=== PATIENT | male | born 1960 | race African-American/Black ===

== ENCOUNTER 2019-02-15 03:31 | Emergency (ER) | payer SELFPAY ==
[2019-02-15 04:01] LABS: Absolute Lymphocytes (CBC) 1.5 K/uL (0.7-4.9); Absolute Monocytes 0.5 K/uL (0.1-1.3); Absolute Neutrophil 3.2 K/uL (1.8-8.0); Basophils % 0.6 % (0-1.3); Eosinophils % 0.2 % (0-4.4); Hematocrit 44.2 % (39.6-49.0); MPV 9.6 fL (7.6-11.3); Monocytes % 9.4 % (3.3-12.3); RBC Red Blood Cell Count 4.97 M/uL (4.33-5.43)
[2019-02-15] MEDS ORDERED: TETANUS & DIPHTHERIA TOX,ADULT 0.5 ML VIAL ONE (04:01)
[2019-02-15 04:27] LABS: ALT/SGPT 63 U/L (12-78); AST/SGOT 96 U/L (15-37); Albumin 3.5 g/dL (3.4-5.0); Alkaline Phosphatase 79 U/L (45-117); BUN Blood Urea Nitrogen 6 mg/dL (7-18); Bicarbonate 22 mmol/L (21-32); Bilirubin Total 0.4 mg/dL (0.2-1.0); Glucose Level 81 mg/dL (74-106); Potassium 3.4 mmol/L (3.5-5.1); Protein, Total 8.6 g/dL (6.4-8.2); Sodium Level 135 mmol/L (136-145)
[2019-02-15] MEDS ORDERED: POTASSIUM 25 MEQ EFFERV TAB ONE (04:52)
[2019-02-15] MEDS ORDERED: NA CHLORIDE 0.9% 1,000 ML ONE (04:52)
[2019-02-15] MEDS ORDERED: LIDOCAINE 1% W/EPI 1:100,000 MDV 50 ML VIAL ONE (05:16)
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
[2019-02-15] MEDS ORDERED: LIDOCAINE 1% MPF 5 ML VIAL ONE (08:29)
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
== END 2019-02-15 08:39 | disposition home or self-care (01) ==
LOC: ER 03:31
PROC: 0JQ00ZZ Repair Scalp Subcutaneous Tissue and Fascia, Open Approach (ICD-10-PCS; principal; 2019-02-15)
PROC: 0HQ2XZZ Repair Right Ear Skin, External Approach (ICD-10-PCS; 2019-02-15)
DX: S01.01XA Laceration without foreign body of scalp, initial encounter (principal); S01.311A Laceration without foreign body of right ear, initial encounter; V59.9XXA Occupant (driver) (passenger) of pick-up truck or van injured in unspecified traffic accident, initial encounter; Z23 Encounter for immunization; F17.210 Nicotine dependence, cigarettes, uncomplicated
CPT/HCPCS: 36415; 70450; 71045; 72125; 72170; 80053; 80320; 85025; 90714; 96360; 96361; 99285; J7030

== ENCOUNTER 2023-09-16 12:19 | Inpatient (IN) | payer SELFPAY ==
[2023-09-16] MEDS ORDERED: LEVALBUTEROL 1.25 MG/3 ML NEB ONE (12:38)
[2023-09-16] MEDS ORDERED: MAGNESIUM SULFATE 1 gm IVPB 1 GM/100 ML BAG IV ONE (12:38)
[2023-09-16] MEDS ORDERED: METHYLPREDNISOLONE 125 MG INJ ONE (12:38)
[2023-09-16 13:01] LABS: Absolute Lymphocytes (CBC) 1.7 K/uL (0.7-4.9); Hematocrit 38.6 % (39.6-49.0); Lymphocytes % 34.3 % (15.3-44.8); MCV 87.2 fL (80-100); MPV 9.9 fL (7.6-11.3); Platelets 149 thou/uL (152-406); RBC Red Blood Cell Count 4.43 M/uL (4.33-5.43)
[2023-09-16 13:06] LABS: Protime INR 1.23
--- NOTE | 2023-09-16 13:09 | RAD REPORT ---
EXAM DESCRIPTION: [place] Single View09/16/2023 12:51 pm CLINICAL HISTORY: Cough COMPARISON: 2018 FINDINGS: Mild bilateral pulmonary opacities Heart is moderately enlarged IMPRESSION: These findings likely indicate mild CHF
--- NOTE | 2023-09-16 13:17 | EDPHYS ---
Physician Documentation [facility] Name: Milan Machuca Age: 62 yrs Sex: Male : 1960 Arrival Date: 09/16/2023 Time: 12:19 Bed 6 Private MD: ED Physician Jose Alegre HPI: 09/16 13:19 This 62 yrs old Black Male presents to ER via EMS with complaints of sob, fever, cough. rn 13:19 The patient has shortness of breath at rest, with light activity. Onset: The rn symptoms/episode began/occurred 4 day(s) ago. Duration: The symptoms are continuous. The patient's shortness of breath is aggravated by coughing, exertion, light activity, is alleviated by application of supplemental oxygen. Associated signs and symptoms: Pertinent positives: productive cough, fever, Pertinent negatives: hemoptysis. Severity of symptoms: At their worst the symptoms were moderate in the emergency department the symptoms are unchanged. The patient has not experienced similar symptoms in the past. The patient has not recently seen a physician. Patient reports feeling sick for the last 4 to 5 days. Reports fever, headache, congestion, productive cough, myalgias. No chest pain. Long smoking history but no clear diagnosis of COPD. No abdominal pain or vomiting.. Historical: - Allergies: 12:27 No Known Allergies; ph - PMHx: 12:27 Hypertensive disorder; CHF; Myocardial infarction; ph - Immunization history:: Adult Immunizations unknown. - Social history:: Smoking status: Patient reports the use of cigarette tobacco products, smokes one-half pack cigarettes per day. - Family history:: not pertinent. - Hospitalizations: : No recent hospitalization is reported. ROS: 13:19 Constitutional: Negative for fever, chills, and weight loss, ENT: Positive for sore rn throat and nasal congestion Cardiovascular: Negative for chest pain, palpitations, and edema, Respiratory: Positive for cough and shortness of breath Abdomen/GI: Negative for abdominal pain, nausea, vomiting, diarrhea, and constipation, MS/Extremity: Negative for injury and deformity, Skin: Negative for injury, rash, and discoloration, Neuro: Positive for headache and generalized weakness Exam: 13:19 Constitutional: This is a well developed, well nourished patient who is awake, alert, rn and in no acute distress. Head/Face: Normocephalic, atraumatic. ENT: Dry mucous membranes, no stridor Cardiovascular: Tachycardic, irregular. No pulse deficits Respiratory: Mild tachypnea, faint expiratory wheezing, diffuse crackles throughout. Abdomen/GI: Soft, nontender Skin: Warm, dry MS/ Extremity: Pulses equal, no cyanosis Neuro: Awake and alert, GCS 15 13:34 ECG was reviewed by the Attending Physician. rn Vital Signs: 12:21 BP 140 / 96; Pulse 120; Resp 24; Temp 97.5; Pulse Ox 93% on R/A; Weight 74.84 kg; ph Height 5 ft. 11 in. ; 13:35 Pulse 95; Resp 19 S; Pulse Ox 95% on 2 lpm NC; aa5 13:40 BP 125 / 97; Pulse 93; Resp 20 S; Pulse Ox 96% on 2 lpm NC; aa5 14:32 BP 123 / 91; Pulse 98; Resp 18; Pulse Ox 94% on 2 lpm NC; ph 16:03 BP 142 / 99; Pulse 95; Resp 18; Pulse Ox 95% on 2 lpm NC; ph 17:55 BP 148 / 98; Pulse 98; Resp 18; Pulse Ox 97% on 2 lpm NC; ph 12:21 Body Mass Index 23.01 (74.84 kg, 180.34 cm) ph MDM: 12:20 Patient medically screened. rn 13:19 Differential diagnosis: Anemia Anxiety Reaction Bronchitis CHF exacerbation, Chronic rn Obstructive Pulmonary Disease Myocardial Infarction pneumonia, Pneumothorax pulmonary edema. Data reviewed: vital signs, nurses notes, lab test result(s), EKG, radiologic studies, plain films. 13:26 Independent interpretation of the following test(s) in the Emergency Department EKG: rn See my EKG interpretation above X-Ray: My interpretation is Chest x-ray images show pulmonary edema per my interpretation.. library monitor: rate is 95 beats/min, Rhythm is normal sinus rhythm, with unifocal PVCs, Interpretation: normal rate, normal rhythm. ED course: Patient with influenza, is a viral source of infection. No bacterial source of infection identified at this time. Patient given diltiazem IV and has converted back to sinus rhythm with occasional PVCs. Heart rate currently 95 in sinus.. 13:27 Consideration of Admission/Observation Patient was admitted/placed on observation. rn Escalation of care including admission/observation considered. Management of patient was discussed with the following: Hospitalist: . Care significantly affected by the following chronic conditions: Hypertension, Congestive Heart Failure. Counseling: I had a detailed discussion with the patient and/or guardian regarding the historical points, exam findings, and any diagnostic results supporting the discharge/admit diagnosis, lab results, radiology results, the need for further work-up and treatment in the hospital. Response to treatment: the patient's symptoms have markedly improved after treatment, and as a result, I will admit patient. ED course: I personally spent 35 minutes engaged in work directly related to the individual patient's care. This does not include any time spent performing procedures. The patient has been deemed critically ill because of atrial fibrillation with rapid ventricular rate requiring IV medication and for cardioversion. Also patient with chronic hypertension and CHF and has been off of his medication for the previous 4 months complicating current situation.. 09/16 12:21 Order name: Blood Culture Adult (2) 09/16 12:21 Order name: CBC with Diff; Complete Time: 13:13 09/16 12:21 Order name: CMP; Complete Time: 13:29 09/16 12:21 Order name: Lactate w/ 2H reflex if indic.; Complete Time: 13:29 09/16 12:21 Order name: Protime (+inr); Complete Time: 13:13 09/16 12:21 Order name: Ptt, Activated; Complete Time: 13:13 09/16 12:21 Order name: Flu; Complete Time: 13:17 09/16 12:21 Order name: SARS RAPID rn 09/16 12:21 Order name: BNP; Complete Time: 13:29 09/16 12:49 Order name: SARS-COV-2 RT PCR ph 09/16 15:40 Order name: Urinalysis w/ reflexes EDMS 09/16 15:40 Order name: Basic Metabolic Panel EDMS 09/16 15:40 Order name: Basic Metabolic Panel EDMS 09/16 15:40 Order name: CBC with Automated Diff EDMS 09/16 15:40 Order name: CBC with Automated Diff EDMS 09/16 15:40 Order name: Lipid Profile EDMS 09/16 15:41 Order name: Lipid Profile EDMS 09/16 15:41 Order name: Magnesium EDMS 09/16 15:41 Order name: Magnesium EDMS 09/16 15:41 Order name: Phosphorus EDMS 09/16 15:41 Order name: Phosphorus EDMS 09/16 15:41 Order name: Troponin High Sensitivity EDMS 09/16 15:41 Order name: Troponin High Sensitivity EDMS 09/16 15:41 Order name: Troponin High Sensitivity EDMS 09/16 15:41 Order name: Troponin High Sensitivity EDMS 09/16 12:21 Order name: Chest Single View XRAY; Complete Time: 13:13 rn 09/16 12:21 Order name: EKG; Complete Time: 12:22 rn 09/16 12:21 Order name: Accucheck; Complete Time: 12:30 rn 09/16 12:21 Order name: Cardiac monitoring; Complete Time: 12:30 rn 09/16 12:21 Order name: EKG - Nurse/Tech; Complete Time: 12:37 rn 09/16 12:21 Order name: IV Saline Lock - Large Bore; Complete Time: 12:49 rn 09/16 12:21 Order name: Labs collected and sent; Complete Time: 12:49 rn 09/16 12:21 Order name: O2 Per Protocol; Complete Time: 12:21 rn 09/16 12:21 Order name: O2 Sat Monitoring; Complete Time: 12:30 rn 09/16 12:21 Order name: Vital Signs; Complete Time: 12:21 rn 09/16 13:36 Order name: EKG - Nurse/Tech; Complete Time: 13:36 aa5 Administered Medications: 12:36 Drug: MethylPrednisoLONE IVP 125 mg IVP once Route: IVP; Site: right antecubital; rs5 13:27 Follow up: Response: No adverse reaction ph 12:36 Drug: Levalbuterol Inhalation 1.25 mg Inhalation once Route: Inhalation; rs5 13:27 Follow up: Response: No adverse reaction ph 12:36 Drug: Magnesium Sulfate IVPB 1 grams IVPB once over 1 hrs Route: IVPB; Infused Over: 1 rs5 hrs; Site: right antecubital; 13:26 Follow up: Response: No adverse reaction; IV Status: Completed infusion; IV Intake: ph 100ml 13:17 Drug: NS 0.9% IV 250 ml IV at bolus once Route: IV; Rate: bolus; Site: right ph antecubital; 14:00 Follow up: Response: No adverse reaction; IV Status: Completed infusion; IV Intake: ph 250ml 13:20 Drug: Diltiazem IVP 20 mg IVP once; Over 2 Minutes Route: IVP; Site: right antecubital; ph 13:28 Follow up: Response: No adverse reaction; Cardiac rhythm changed ph 18:05 Drug: Diltiazem PO 30 mg PO once Route: PO; ph 19:30 Follow up: Response: No adverse reaction ph Disposition: 13:27 Critical Care:. rn Disposition Summary: 09/16/23 13:16 Hospitalization Ordered Notes: Hospitalization Status: Inpatient Admission rn Provider: Roland Kramer rn Location: Telemetry/MedSurg (Inpatient) rn Condition: Stable rn Problem: new rn Symptoms: have improved rn Bed/Room Type: Standard rn Room Assignment: 410(09/16/23 17:07) eb Diagnosis - Paroxysmal atrial fibrillation - with Rapid ventricular rate rn - Influenza due to other identified influenza virus with other respiratory rn manifestations - Acute pulmonary edema rn Forms: - Medication Reconciliation Form rn - SBAR form rn - Leadership Thank You Letter clinical rn liaison time excluding procedures: 13:27 Critical care time: Bedside Care: 35 minutes. Total time: 35 minutes rn Signatures: Dispatcher [employer] EDJose Carranza MD MD rn Calderon, Audri RN RN aa5 Tricia Mercer RN RN [place] Ricky RN RN rs5 Corrections: (The following items were deleted from the chart) 17:07 13:16 rn eb
--- NOTE | 2023-09-16 13:17 | ER ---
Nurse's Notes [facility] Name: Milan Machuca Age: 62 yrs Sex: Male : 1960 Arrival Date: 09/16/2023 Time: 12:19 Bed 6 Private MD: Diagnosis: Paroxysmal atrial fibrillation-with Rapid ventricular rate;Influenza due to other identified influenza virus with other respiratory manifestations;Acute pulmonary edema Presentation: 09/16 12:21 Chief complaint: EMS states: Pt c/o difficulty breathing, also reports headache, fever, ph chills, N/V, initial 12 lead showed a-fib RVR w/ rate 160-170, after pt loaded into ambulance rhythm converted to sinus tach, breathing tx and 1 gram Tylenol given, pt w/ cardiac hx, states that he has been out of his medications for approx 1 month, temp for EMS 100.3. Coronavirus screen: Vaccine status: Patient reports receiving the 2nd dose of the covid vaccine. Ebola Screen: No symptoms or risks identified at this time. Initial Sepsis Screen: Does the patient meet any 2 criteria? RR > 20 per min. HR > 90 bpm. Does the patient have a suspected source of infection? Yes: Productive cough/pneumonia. Risk Assessment: Do you want to hurt yourself or someone else? Patient reports no desire to harm self or others. Onset of symptoms was September 16, 2023. 12:21 Method Of Arrival: EMS: [facility] 12:21 Acuity: AVELINO 2 ph Triage Assessment: 12:27 General: Appears in no apparent distress. uncomfortable, ill, Behavior is calm, ph cooperative, appropriate for age, Reports chills for fever for 2-3 days. Pain: Complains of pain in headache. Neuro: Level of Consciousness is awake, alert, obeys commands, Oriented to person, place, time, situation, Reports headache. Cardiovascular: Capillary refill < 3 seconds in bilateral fingers Patient's skin is warm and dry. Respiratory: Reports shortness of breath at rest cough that is Airway is patent Respiratory effort is even, labored, Respiratory pattern is tachypnea. GI: Reports nausea, vomiting, Patient currently denies abdominal pain. : No signs and/or symptoms were reported regarding the genitourinary system. Derm: Skin is pink, warm \T\ dry. Musculoskeletal: Circulation, motion, and sensation intact. Range of motion: intact in all extremities. Historical: - Allergies: 12:27 No Known Allergies; ph - PMHx: 12:27 Hypertensive disorder; CHF; Myocardial infarction; ph - Immunization history:: Adult Immunizations unknown. - Social history:: Smoking status: Patient reports the use of cigarette tobacco products, smokes one-half pack cigarettes per day. - Family history:: not pertinent. - Hospitalizations: : No recent hospitalization is reported. Screenin:29 [facility] ED Fall Risk Assessment (Adult) History of falling in the last 3 months, ph including since admission No falls in past 3 months (0 pts) Confusion or Disorientation No (0 pts) Intoxicated or Sedated No (0 pts) Impaired Gait No (0 pts) Mobility Assist Device Used No (0 pt) Altered Elimination No (0 pt) Score/Fall Risk Level 0 - 2 = Low Risk Oriented to surroundings, Maintained a safe environment, Provided non-skid footwear, Hourly rounding (assess needs \T\ fall precautionary measures) done. Abuse screen: Denies threats or abuse. Denies injuries from another. Nutritional screening: No deficits noted. Tuberculosis screening: No symptoms or risk factors identified. Assessment: 12:30 General: SEE TRIAGE ASSESSMENT. ph 13:37 Reassessment: Patient states feeling better. Pt sitting up in bed. . Neuro: Level of aa5 Consciousness is awake, alert, obeys commands, Oriented to person, place, time, situation. Cardiovascular: Rhythm is sinus rhythm. Respiratory: Airway is patent Respiratory effort is even, unlabored, Respiratory pattern is regular, symmetrical. Derm: Skin is dry, Skin is normal, Skin temperature is warm. 13:37 Reassessment: Awaiting Diltiazem PO from pharmacy, spoke to [place] pharmacy technician inpatient will aa5 deliver to ER.. 13:40 Reassessment: Diltiazem PO on hold per MD VO due to current BP reading and pt currently aa5 being NSR. . 15:00 Reassessment: Patient appears in no apparent distress at this time. Patient and/or ph family updated on plan of care and expected duration. Pain level reassessed. Patient is alert, oriented x 3, equal unlabored respirations, skin warm/dry/pink. 16:00 Reassessment: Patient appears in no apparent distress at this time. Patient and/or ph family updated on plan of care and expected duration. Pain level reassessed. Patient is alert, oriented x 3, equal unlabored respirations, skin warm/dry/pink. 17:59 Reassessment: Patient appears in no apparent distress at this time. Patient and/or ph family updated on plan of care and expected duration. Pain level reassessed. Patient is alert, oriented x 3, equal unlabored respirations, skin warm/dry/pink. Attempted to call report, no answer, will attempt again. 18:08 Reassessment: Attempted to call report to 4th floor, no answer, went to voicemail. ph Vital Signs: 12:21 BP 140 / 96; Pulse 120; Resp 24; Temp 97.5; Pulse Ox 93% on R/A; Weight 74.84 kg; ph Height 5 ft. 11 in. ; 13:35 Pulse 95; Resp 19 S; Pulse Ox 95% on 2 lpm NC; aa5 13:40 BP 125 / 97; Pulse 93; Resp 20 S; Pulse Ox 96% on 2 lpm NC; aa5 14:32 BP 123 / 91; Pulse 98; Resp 18; Pulse Ox 94% on 2 lpm NC; ph 16:03 BP 142 / 99; Pulse 95; Resp 18; Pulse Ox 95% on 2 lpm NC; ph 17:55 BP 148 / 98; Pulse 98; Resp 18; Pulse Ox 97% on 2 lpm NC; ph 12:21 Body Mass Index 23.01 (74.84 kg, 180.34 cm) ph ED Course: 12:20 Patient arrived in ED. rn 12:20 Jose Alegre MD is Attending Physician. rn 12:20 Tricia Mercer RN is Primary Nurse. ph 12:27 Triage completed. ph 12:29 Arm band placed on Patient placed in an exam room. ph 12:29 Patient has correct armband on for positive identification. Placed in gown. Bed in low ph position. Call light in reach. Side rails up X2. Client placed on continuous cardiac and pulse oximetry monitoring. NIBP monitoring applied. 12:49 Flu Sent. ph 12:49 BNP Sent. ph 12:53 Chest Single View XRAY In Process Unspecified. EDMS 13:16 Roland Kramer is Hospitalizing Provider. rn 16:03 No provider procedures requiring assistance completed. Patient admitted, IV remains in ph place. Administered Medications: 12:36 Drug: MethylPrednisoLONE IVP 125 mg IVP once Route: IVP; Site: right antecubital; rs5 13:27 Follow up: Response: No adverse reaction ph 12:36 Drug: Levalbuterol Inhalation 1.25 mg Inhalation once Route: Inhalation; rs5 13:27 Follow up: Response: No adverse reaction ph 12:36 Drug: Magnesium Sulfate IVPB 1 grams IVPB once over 1 hrs Route: IVPB; Infused Over: 1 rs5 hrs; Site: right antecubital; 13:26 Follow up: Response: No adverse reaction; IV Status: Completed infusion; IV Intake: ph 100ml 13:17 Drug: NS 0.9% IV 250 ml IV at bolus once Route: IV; Rate: bolus; Site: right ph antecubital; 14:00 Follow up: Response: No adverse reaction; IV Status: Completed infusion; IV Intake: ph 250ml 13:20 Drug: Diltiazem IVP 20 mg IVP once; Over 2 Minutes Route: IVP; Site: right antecubital; ph 13:28 Follow up: Response: No adverse reaction; Cardiac rhythm changed ph 18:05 Drug: Diltiazem PO 30 mg PO once Route: PO; ph 19:30 Follow up: Response: No adverse reaction ph Medication: 12:29 VIS not applicable for this client. ph Intake: 13:26 IV: 100ml; Total: 100ml. ph 14:00 IV: 250ml; Total: 350ml. ph Outcome: 13:16 Decision to Hospitalize by Provider. rn 18:42 Patient left the ED. ph Signatures: Dispatcher [employer] EDMS Jose Alegre MD MD rn Calderon, Audri RN RN aa5 Tricia Mercer RN RN ph Mal Avalos, RN RN rs5
[2023-09-16 13:19] LABS: Albumin 2.9 g/dL (3.4-5.0); Bilirubin Total 0.9 mg/dL (0.2-1.0); Potassium 3.3 mEq/L (3.5-5.1); Protein, Total 7.2 g/dL (6.4-8.2)
[2023-09-16] MEDS ORDERED: NA CHLORIDE 0.9% 250 ML ONE (13:25)
[2023-09-16] MEDS ORDERED: dilTIAZem HCL 25 MG/5 ML VIAL IV ONE (13:26)
[2023-09-16] MEDS ORDERED: DILTIAZEM HCL 60 MG TAB PO ONE (13:45)
--- NOTE | 2023-09-16 14:47 | P.HP ---
Certification for Inpatient Patient admitted to: Observation With expected LOS: >2 Midnights Patient will require the following post-hospital care: None Practitioner: I am a practitioner with admitting privileges, knowledge of patient current condition, hospital course, and medical plan of care. Services: Services provided to patient in accordance with Admission requirements found in Title 42 Section 412.3 of the Code of Federal Regulations <Soraya Fry - Last Filed: 09/17/23 07:58> Patient History Date of Service: 09/17/23 History of Present Illness: Milan Machcua is a 62 year old male with Pmhx hypertension, CHF, and myocardial infarction who presents to the ED c/o cough, SOB, PND, CP, diziness, and N/V. He reports starting to cough with N/V Tuesday through Tuesday. His symptoms have worsened now with PND, CP, and dizziness. He is hoarse from coughing so much. On examination, he is on 2 LNC but initially arrived to the ED sating 93% on RA. Initial vitals BP 140/96, HR 120, Resp 24, Temp 97.5, and pulse ox at 93% on RA. Significant labs WBC 4.8, K 3.3, platelets 70,000, Glucose 149, H/H 12/38. CXR reported "Mild bilateral pulmonary opacities, Heart is moderately enlarged, These findings likely indicate mild CHF". He responded well to magnesium and cardizem IV in the ED. Milan will be admitted to hospitalist service for further treatment of CHF exacerbation and Afib with RVR. <Soraya Fry - Last Filed: 09/17/23 07:58> Date of Service: 09/17/23 <jarvis zelaya - Last Filed: 09/17/23 14:10> Allergies No Known Allergies Allergy (Unverified 09/16/23 13:37) Review of Systems General: Fever, Chills Respiratory: Cough, Dry Cardiovascular: Chest Pain, Paroxysmal Noc. Dyspnea Gastrointestinal: Nausea, Vomiting Neurological: Weakness, Other (Dizziness) <Soraya Fry - Last Filed: 09/17/23 07:58> Physical Examination - Physical Exam General: Alert, Oriented x3, Acute distress HEENT: Atraumatic, Normocephalic, PERRLA Neck: Supple, 2+ carotid pulse no bruit Respiratory: Normal air movement, Rhonchi/gurgles Cardiovascular: No edema, Normal pulses, Regular rate/rhythm, Normal S1 S2 Capillary refill: <2 Seconds Gastrointestinal: Normal bowel sounds, Soft and benign Musculoskeletal: No clubbing, No swelling, No contractures Integumentary: No rashes, No breakdown, No significant lesion Neurological: Normal speech, Normal strength at 5/5 x4 extr, Normal tone - Studies Laboratory Data (last 24 hrs) 09/16/23 09/16/23 09/16/23 12:45 12:45 12:45 WBC 4.80 Hgb 12.9 L Hct 38.6 L Plt Count 149 L PT 13.5 H INR 1.23 APTT 33.3 Sodium 141 Potassium 3.3 L BUN 9 Creatinine 1.18 Glucose 98 Total Bilirubin 0.9 AST 57 H ALT 42 Alkaline Phosphatase 83 Microbiology Data (last 24 hrs): 09/16/23 12:48 Nasopharnyx Influenza Type A Antigen Screen - Final 09/16/23 12:48 Nasopharnyx Influenza Type B Antigen Screen - Final <Soraya Fry - Last Filed: 09/17/23 07:58> - Studies Microbiology Data (last 24 hrs): 09/16/23 12:48 Nasopharnyx Influenza Type A Antigen Screen - Final 09/16/23 12:48 Nasopharnyx Influenza Type B Antigen Screen - Final <jarvis zelaya - Last Filed: 09/17/23 14:10> Assessment and Plan - Plan Assessment and Plan Afib wtih RVR CHF hx [place] Diltiazem and Magnesium in the ED Metoprolol BNP 9228 lasix 40 IV x 1 troponin pending on 2 C Cardiology consult lipid panel ECHO Hypokalemia k 3.3 replace and monitor in AM labs Thrombocytopenia platelets 70,000 monitor in AM labs Hypertension restart home medications DVT ppx Eliquis Full code LOS 2-3 days Discharge Plan: Home - Advance Directives Does patient have a Living Will: No Does patient have a Durable POA for Healthcare: No Time Spent Managing Pts Care (In Minutes): 55 <Soraya Fry - Last Filed: 09/17/23 07:58> - Plan Acute heart failure-unknown EF A-fib with RVR Metoprolol IV Lasix Cardiology consult Obtain echo cardio Screen for upper respiratory infection. <jarvis zelaya - Last Filed: 09/17/23 14:10>
[2023-09-16] MEDS ORDERED: POTASSIUM 25 MEQ EFFERV TAB PO ONE (16:00)
[2023-09-16] MEDS ORDERED: FUROSEMIDE 40 MG/4 ML VIAL IV ONE (16:01)
[2023-09-16] MEDS: APIXABAN 2.5 MG TABLET PO SCH (20:00)
[2023-09-16] MEDS: METOPROLOL TAR 25 MG TAB PO SCH (20:00)
[2023-09-16] MEDS ORDERED: DILTIAZEM HCL 60 MG TAB PO SCH (21:00)
[2023-09-16] MEDS: ASPIRIN 81 MG CHEWABLE TABLET PO SCH (22:05)
[2023-09-16 23:05] VITALS: BMI 23.0
[2023-09-17 03:29] LABS: Absolute Lymphocytes (CBC) 0.8 K/uL (0.7-4.9); Hematocrit 40.3 % (39.6-49.0); Lymphocytes % 18.7 % (15.3-44.8); MCV 86.3 fL (80-100); MPV 9.9 fL (7.6-11.3); Platelets 161 thou/uL (152-406); RBC Red Blood Cell Count 4.67 M/uL (4.33-5.43)
[2023-09-17 03:39] LABS: Magnesium 1.7 mg/dL (1.6-2.4); Phosphorus 1.9 mg/dL (2.5-4.9); Potassium 3.6 mEq/L (3.5-5.1)
[2023-09-17] MEDS ORDERED: MAGNESIUM SULFATE 1 gm IVPB 1 GM/100 ML BAG IV ONE (06:10)
[2023-09-17] MEDS ORDERED: POTASSIUM CL SA 10 MEQ TAB PO ONE (06:30)
[2023-09-17] MEDS: POTASS/SODIUM PHOSPHATE 1 PKT POWD.PACK PO SCH ×3 (06:43→09:24)
--- NOTE | 2023-09-17 07:59 | P.PN ---
Subjective Date of Service: 09/17/23 Chief Complaint: coughing, SOB Subjective: C/O voiced (dry Cough), Doing well HPI 09/16: Milan Machuca is a 62 year old male with Pmhx hypertension, CHF, and myocardial infarction who presents to the ED c/o cough, SOB, PND, CP, diziness, and N/V. He reports starting to cough with N/V Tuesday through Tuesday. His symptoms have worsened now with PND, CP, and dizziness. He is hoarse from coughing so much. On examination, he is on 2 LNC but initially arrived to the ED sating 93% on RA. Initial vitals BP 140/96, HR 120, Resp 24, Temp 97.5, and pulse ox at 93% on RA. Significant labs WBC 4.8, K 3.3, platelets 70,000, Glucose 149, H/H 12/38. CXR reported "Mild bilateral pulmonary opacities, Heart is moderately enlarged, These findings likely indicate mild CHF". He responded well to magnesium and cardizem IV in the ED. Milan will be admitted to hospitalist service for further treatment of CHF exacerbation and Afib with RVR. 09/17: Milan is awake, alert, and oriented x3, he is c/o his dry cough causing SOB he has had for a week. COVID was negative, ordering tesselon perle and IS. Tele showing NSR with PVC activity. He denies CP, ZAMBRANO, and abdominal pain. Elevated troponin, cardiology consulted. He has a history of CHF, UOP acceptable with lasix given. <Soraya Fry - Last Filed: 09/17/23 10:32> Date of Service: 09/17/23 <jarvis zelaya - Last Filed: 09/17/23 14:08> Review of Systems Respiratory: Cough, Dry, Shortness of Breath <Soraya Fry - Last Filed: 09/17/23 10:32> Physical Examination - Vital Signs Temperature: 98.3 F Blood Pressure: 117/73 Pulse: 79 Respirations: 16 Pulse Ox (%): 98 - Studies Laboratory Data (last 24 hrs) 09/16/23 09/16/23 09/16/23 12:45 12:45 12:45 WBC 4.80 Hgb 12.9 L Hct 38.6 L Plt Count 149 L PT 13.5 H INR 1.23 APTT 33.3 Sodium 141 Potassium 3.3 L BUN 9 Creatinine 1.18 Glucose 98 Total Bilirubin 0.9 AST 57 H ALT 42 Alkaline Phosphatase 83 Microbiology Data (last 24 hrs): 09/16/23 12:48 Nasopharnyx Influenza Type A Antigen Screen - Final 09/16/23 12:48 Nasopharnyx Influenza Type B Antigen Screen - Final <Soraya Fry - Last Filed: 09/17/23 10:32> - Studies Microbiology Data (last 24 hrs): 09/16/23 12:48 Nasopharnyx Influenza Type A Antigen Screen - Final 09/16/23 12:48 Nasopharnyx Influenza Type B Antigen Screen - Final <jarvis zelaya - Last Filed: 09/17/23 14:08> Assessment And Plan - Plan Physical Exam General: Alert, Oriented x3, Acute distress HEENT: Atraumatic, Normocephalic, PERRLA Neck: Supple, 2+ carotid pulse no bruit Respiratory: Normal air movement, Rhonchi/gurgles Cardiovascular: No edema, Normal pulses, Regular rate/rhythm, Normal S1 S2 Capillary refill: <2 Seconds Gastrointestinal: Normal bowel sounds, Soft and benign Musculoskeletal: No clubbing, No swelling, No contractures Integumentary: No rashes, No breakdown, No significant lesion Neurological: Normal speech, Normal strength at 5/5 x4 extr, Normal tone Assessment and Plan Afib wtih RVR NSTEMI CHF hx TN Diltiazem and Magnesium in the ED Metoprolol BNP 9228 lasix 40 IV BID troponin 395/286.7/pending on 2 C Cardiology consult lipid panel ECHO Tele- NSR with PVC, heart rate controlled Dry Cough COVID negative Flu/RSV pending procalcitonin pending tessalon perle Q6h Hypokalemia/hypophosphatemia k 3.6 phos 1.9 replace and monitor in AM labs Thrombocytopenia-correction platelets 161,000 monitor in AM labs Hypertension Metoprolol 25 BID restart home medications DVT ppx Eliquis Full code LOS 2-3 days Discharge Plan: Home Plan to discharge in: 72 Hours Time Spent Managing PTS Care (In Minutes): 35 <Soraya Fry - Last Filed: 09/17/23 10:32> - Plan Patient seen and examined. He is coughing intermittently. Cough is nonproductive. Heart rate has improved. Troponin is mildly elevated but trended flat. Elevated troponin likely secondary to demand ischemia related to A-fib with RVR and influenza B infection. Patient with a history of chronic systolic heart failure. He reports recent EF of 20% Patient with acute on chronic systolic heart Validates and resume home medications Continue supportive measures IV Lasix. Start Tamiflu <jarvis zelaya - Last Filed: 09/17/23 14:08>
[2023-09-17] MEDS: ASPIRIN 81 MG CHEWABLE TABLET PO SCH (08:23)
[2023-09-17] MEDS: APIXABAN 2.5 MG TABLET PO SCH ×2 (08:23→20:53)
[2023-09-17] MEDS: METOPROLOL TAR 25 MG TAB PO SCH ×2 (08:23→20:55)
[2023-09-17] MEDS: FUROSEMIDE 40 MG/4 ML VIAL IV SCH ×2 (08:24→17:48)
[2023-09-17] MEDS ORDERED: DILTIAZEM HCL 60 MG TAB PO SCH (09:00)
[2023-09-17] MEDS ORDERED: INFLUENZA VACCINE (for 6+ mo) 0.5 ML DOSE IMVAC ONE (12:00)
[2023-09-17] MEDS: BENZONATATE 100 MG CAP PO PRN (17:48)
[2023-09-17 18:42] LABS: Urine Bacteria None Seen /HPF (<20); Urine RBC <5 /HPF (None Seen)
[2023-09-17 19:01] LABS: Specific Gravity 1.011 (1.005-1.030); Urine Bilirubin NEGATIVE (Negative); Urine Blood Negative (Negative); Urine Clarity Clear (Clear); Urine Color Light-Yellow (Yellow); Urine Glucose NEGATIVE (Negative); Urine Protein NEGATIVE (Negative); Urine Urobilinogen 1+ (Normal); Urine pH 6.5 (5.0-7.0)
[2023-09-17] MEDS: ATORVASTATIN 40 MG TAB PO SCH (20:53)
[2023-09-17] MEDS: OSELTAMIVIR 75 MG CAP PO SCH (20:53)
[2023-09-18] MEDS: ACETAMINOPHEN 325 MG TABLET PO PRN ×2 (00:13→08:30)
[2023-09-18] MEDS: BENZONATATE 100 MG CAP PO PRN ×3 (00:13→14:48)
[2023-09-18 07:02] LABS: Magnesium 1.7 mg/dL (1.6-2.4); Phosphorus 3.1 mg/dL (2.5-4.9); Potassium 3.5 mEq/L (3.5-5.1)
--- NOTE | 2023-09-18 07:45 | P.PN ---
Subjective Date of Service: 09/18/23 Chief Complaint: coughing, SOB HPI 09/16: Milan Machuca is a 62 year old male with Pmhx hypertension, CHF, and myocardial infarction who presents to the ED c/o cough, SOB, PND, CP, diziness, and N/V. He reports starting to cough with N/V Tuesday through Tuesday. His symptoms have worsened now with PND, CP, and dizziness. He is hoarse from coughing so much. On examination, he is on 2 LNC but initially arrived to the ED sating 93% on RA. Initial vitals BP 140/96, HR 120, Resp 24, Temp 97.5, and pulse ox at 93% on RA. Significant labs WBC 4.8, K 3.3, platelets 70,000, Glucose 149, H/H 12/38. CXR reported "Mild bilateral pulmonary opacities, Heart is moderately enlarged, These findings likely indicate mild CHF". He responded well to magnesium and cardizem IV in the ED. Milan will be admitted to hospitalist service for further treatment of CHF exacerbation and Afib with RVR. 09/17: Milan is awake, alert, and oriented x3, he is c/o his dry cough causing SOB he has had for a week. COVID was negative, ordering tesselon perle and IS. Tele showing NSR with PVC activity. He denies CP, ZAMBRANO, and abdominal pain. Elevated troponin, cardiology consulted. He has a history of CHF, UOP acceptable with lasix given. 09/18: Milan is awake with a dry cough. He experienced 6 rounds of Vtach at 6am this morning and another three round of vtach last night at 2330. Replacing mag and potassium daily. <Soraya Fry - Last Filed: 09/18/23 09:36> Date of Service: 09/18/23 <jarvis zelaya - Last Filed: 09/18/23 15:11> Review of Systems Respiratory: Cough, Dry, Shortness of Breath (during Vtach episodes) <Soraya Fry - Last Filed: 09/18/23 09:36> Physical Examination - Vital Signs Temperature: 99.7 F Blood Pressure: 118/83 Pulse: 89 Respirations: 16 Pulse Ox (%): 99 <Soraya Fry - Last Filed: 09/18/23 09:36> Assessment And Plan - Plan Physical Exam General: Alert, Oriented x3, Acute distress HEENT: Atraumatic, Normocephalic, PERRLA Neck: Supple, 2+ carotid pulse no bruit Respiratory: Normal air movement, Rhonchi/gurgles Cardiovascular: No edema, Normal pulses, Regular rate/rhythm, Normal S1 S2 Capillary refill: <2 Seconds Gastrointestinal: Normal bowel sounds, Soft and benign Musculoskeletal: No clubbing, No swelling, No contractures Integumentary: No rashes, No breakdown, No significant lesion Neurological: Normal speech, Normal strength at 5/5 x4 extr, Normal tone Assessment and Plan Afib wtih RVR NSTEMI CHF hx ID Diltiazem and Magnesium in the ED Metoprolol BNP 9228 lasix 40 IV BID troponin 395/286.7/223.6 on 2 LNC Cardiology consult lipid panel ECHO Tele- NSR with PVC, heart rate controlled Dry Cough COVID negative Flu/RSV pending procalcitonin pending tessalon perle Q6h Vtach 6 beats of Vtach at 6 am this morning Magnesium and potassium given goal: mag at 3 and K at 4 telemetry on Consult to Jaime Hypokalemia/hypophosphatemia k 3.5 phos 3.1 replace and monitor in AM labs Thrombocytopenia-correction platelets 161,000 monitor in AM labs Hypertension Metoprolol 25 BID restart home medications DVT ppx Eliquis Full code LOS 2-3 days Discharge Plan: Home Plan to discharge in: 48 Hours Time Spent Managing PTS Care (In Minutes): 35 <Soraya Fry - Last Filed: 09/18/23 09:36> - Plan Patient with a history of chronic systolic heart failure, EF of 20%. He reports he was supposed to be evaluated for AICD placement but currently has no insurance. He stated he is yet to apply for disability and Medicaid. Monitor and optimize electrolytes. Keep potassium greater than 4 and magnesium greater than 2. Increase metoprolol. Elevated troponin likely secondary to demand ischemia. Obtain echocardiogram Cardiology consulted. <jarvis zelaya - Last Filed: 09/18/23 15:11>
[2023-09-18] MEDS ORDERED: Magnesium Sulfate 2gm IVPB 2 G/50 ML BAG IV ONE (08:00)
[2023-09-18] MEDS: APIXABAN 2.5 MG TABLET PO SCH ×2 (08:30→20:25)
[2023-09-18] MEDS: ASPIRIN 81 MG CHEWABLE TABLET PO SCH (08:30)
[2023-09-18] MEDS: SPIRONOLACTONE 25 MG TABLET PO SCH (08:30)
[2023-09-18] MEDS: METOPROLOL TAR 25 MG TAB PO SCH ×2 (08:30→20:26)
[2023-09-18] MEDS: FUROSEMIDE 40 MG/4 ML VIAL IV SCH ×2 (08:31→16:25)
[2023-09-18] MEDS: OSELTAMIVIR 75 MG CAP PO SCH ×2 (08:34→20:25)
[2023-09-18] MEDS: KCL 20 MEQ/100 mL IVPB 100 ML IV SCH ×2 (08:35→12:31)
[2023-09-18] MEDS: ATORVASTATIN 40 MG TAB PO SCH (20:25)
[2023-09-19 02:32] LABS: SARS-COV-2 RT PCR NEGATIVE (NEGATIVE)
[2023-09-19 04:02] LABS: Absolute Lymphocytes (CBC) 1.9 K/uL (0.7-4.9); Hematocrit 48.2 % (39.6-49.0); Lymphocytes % 33.2 % (15.3-44.8); MCV 87.4 fL (80-100); MPV 10.5 fL (7.6-11.3); Platelets 177 thou/uL (152-406); RBC Red Blood Cell Count 5.52 M/uL (4.33-5.43)
[2023-09-19 04:24] LABS: Magnesium 2.4 mg/dL (1.6-2.4); Phosphorus 3.8 mg/dL (2.5-4.9); Potassium 3.4 mEq/L (3.5-5.1)
[2023-09-19] MEDS ORDERED: POTASSIUM 25 MEQ EFFERV TAB PO ONE (05:24)
--- NOTE | 2023-09-19 09:26 | P.PN ---
Subjective Date of Service: 09/19/23 Chief Complaint: coughing, SOB Subjective: Doing well HPI 09/16: Milan Machuca is a 62 year old male with Pmhx hypertension, CHF, and myocardial infarction who presents to the ED c/o cough, SOB, PND, CP, diziness, and N/V. He reports starting to cough with N/V Tuesday through Tuesday. His symptoms have worsened now with PND, CP, and dizziness. He is hoarse from coughing so much. On examination, he is on 2 LNC but initially arrived to the ED sating 93% on RA. Initial vitals BP 140/96, HR 120, Resp 24, Temp 97.5, and pulse ox at 93% on RA. Significant labs WBC 4.8, K 3.3, platelets 70,000, Glucose 149, H/H 12/. CXR reported "Mild bilateral pulmonary opacities, Heart is moderately enlarged, These findings likely indicate mild CHF". He responded well to magnesium and cardizem IV in the ED. Milan will be admitted to hospitalist service for further treatment of CHF exacerbation and Afib with RVR. 09/17: Milan is awake, alert, and oriented x3, he is c/o his dry cough causing SOB he has had for a week. COVID was negative, ordering tesselon perle and IS. Tele showing NSR with PVC activity. He denies CP, ZAMBRANO, and abdominal pain. Elevated troponin, cardiology consulted. He has a history of CHF, UOP acceptable with lasix given. 09/18: Milan is awake with a dry cough. He experienced 6 rounds of Vtach at 6am this morning and another three round of vtach last night at 2330. Replacing mag and potassium daily. 09/19: Milan is doing well, he has a ten run of VTach this morning at 4am. He reported becoming short of breath during that episode. Will request Dr. Sandoval to see him today for recommendations. Replacing electrolytes daily and on metoprolol BID. <Soraya Fry - Last Filed: 09/19/23 09:20> Date of Service: 09/19/23 <jarvis zelaya - Last Filed: 09/19/23 16:04> Review of Systems Respiratory: Cough, Dry, Shortness of Breath Cardiovascular: Other (VTach causing SOB) <Soraya Fry - Last Filed: 09/19/23 09:20> Physical Examination - Vital Signs Temperature: 98 F Blood Pressure: 120/84 Pulse: 79 Respirations: 18 Pulse Ox (%): 94 <Soraya Fyr - Last Filed: 09/19/23 09:20> - Studies Laboratory Data (last 24 hrs) 09/18/23 15:40 Potassium 4.0 D <jarvis zelaya - Last Filed: 09/19/23 16:04> Assessment And Plan - Plan Physical Exam General: Alert, Oriented x3, Acute distress HEENT: Atraumatic, Normocephalic, PERRLA Neck: Supple, 2+ carotid pulse no bruit Respiratory: Normal air movement, Rhonchi/gurgles Cardiovascular: No edema, Normal pulses, NSR with episodes of Vtach, Normal S1 S2 Capillary refill: <2 Seconds Gastrointestinal: Normal bowel sounds, Soft and benign Musculoskeletal: No clubbing, No swelling, No contractures Integumentary: No rashes, No breakdown, No significant lesion Neurological: Normal speech, Normal strength at 5/5 x4 extr, Normal tone Assessment and Plan Afib wtih RVR NSTEMI CHF hx NC Diltiazem and Magnesium in the ED Metoprolol BNP 9228 lasix 40 IV BID troponin 395/286.7/223.6 on 2 LNC Cardiology consult lipid panel ECHO Tele- NSR with PVC, episodes of Vtach Dry Cough COVID negative Flu/RSV negative procalcitonin <0.05 tessalon perle Q6h Vtach 6 beats of Vtach at 6 am this morning Magnesium and potassium given goal: mag at 3 and K at 4 telemetry on Consult to Jaime Hypokalemia/hypophosphatemia k 3.4 phos 3.8 replace and monitor in AM labs Thrombocytopenia-correction platelets 161,000 monitor in AM labs Hypertension Metoprolol 25 BID restart home medications DVT ppx Eliquis Full code LOS 2-3 days Discharge Plan: Home Plan to discharge in: 48 Hours Time Spent Managing PTS Care (In Minutes): 35 <Soraya Fry - Last Filed: 09/19/23 09:20> - Plan Patient seen and examined. Plan of care discussed with Ms. Fyr. Patient has been experiencing runs of nonsustained V. tach. He states that she feels much better. He reported significant improvement in his upper respiratory symptoms and hoping to go home soon. Diagnosis Acute on chronic systolic heart failure Nonsustained VT A-fib with RVR Upper respiratory infection. NSVT discussed with Dr. Sandoval. Echocardiogram ordered. Optimize electrolytes, keep potassium greater than 4 and magnesium greater than 2. Continue metoprolol. <jarvis zelaya - Last Filed: 09/19/23 16:04>
[2023-09-19] MEDS: ASPIRIN 81 MG CHEWABLE TABLET PO SCH (10:21)
[2023-09-19] MEDS: METOPROLOL TAR 25 MG TAB PO SCH ×2 (10:21→21:06)
[2023-09-19] MEDS: FUROSEMIDE 40 MG/4 ML VIAL IV SCH ×2 (10:21→18:10)
[2023-09-19] MEDS: BENZONATATE 100 MG CAP PO PRN ×2 (10:21→21:04)
[2023-09-19] MEDS: APIXABAN 2.5 MG TABLET PO SCH ×2 (10:22→21:04)
[2023-09-19] MEDS: SPIRONOLACTONE 25 MG TABLET PO SCH (10:22)
[2023-09-19] MEDS: OSELTAMIVIR 75 MG CAP PO SCH ×2 (10:22→21:04)
[2023-09-19] MEDS: ATORVASTATIN 40 MG TAB PO SCH (21:04)
[2023-09-20 07:15] LABS: Magnesium 2.4 mg/dL (1.6-2.4); Phosphorus 3.6 mg/dL (2.5-4.9); Potassium 4.1 mEq/L (3.5-5.1)
[2023-09-20] MEDS: FUROSEMIDE 40 MG/4 ML VIAL IV SCH ×2 (09:00→09:34)
[2023-09-20 09:26] VITALS: O2SAT 96
[2023-09-20] MEDS: APIXABAN 2.5 MG TABLET PO SCH (09:32)
[2023-09-20] MEDS: SPIRONOLACTONE 25 MG TABLET PO SCH (09:32)
[2023-09-20] MEDS: OSELTAMIVIR 75 MG CAP PO SCH (09:34)
[2023-09-20] MEDS: ASPIRIN 81 MG CHEWABLE TABLET PO SCH (09:43)
[2023-09-20] MEDS: METOPROLOL TAR 25 MG TAB PO SCH (09:48)
--- NOTE | 2023-09-20 16:17 | P.DS ---
Admission Date: 09/18/23 Discharge Date: 09/20/23 Disposition: ROUTINE DISCHARGE Discharge Condition: GOOD Reason for Admission: coughing, SOB Brief History of Present Illness: HPI 09/16: Milan Machuca is a 62 year old male with Pmhx hypertension, CHF, and myocardial infarction who presents to the ED c/o cough, SOB, PND, CP, diziness, and N/V. He reports starting to cough with N/V Tuesday through Tuesday. His symptoms have worsened now with PND, CP, and dizziness. He is hoarse from coughing so much. On examination, he is on 2 LNC but initially arrived to the ED sating 93% on RA. Initial vitals BP 140/96, HR 120, Resp 24, Temp 97.5, and pulse ox at 93% on RA. Significant labs WBC 4.8, K 3.3, platelets 70,000, Glucose 149, H/H 12/38. CXR reported "Mild bilateral pulmonary opacities, Heart is moderately enlarged, These findings likely indicate mild CHF". He responded well to magnesium and cardizem IV in the ED. Milan will be admitted to hospitalist service for further treatment of CHF exacerbation and Afib with RVR. Hospital Course: Problem list Acute on chronic systolic congestive heart failure Vtach NSTEMI History of CAD/ND Dry Cough Hypokalemia/hypophosphatemia Thrombocytopenia Hypertension Patient was admitted to the hospital with NSTEMI, acute on chronic systolic congestive heart failure, volume overload with elevated troponins. He was diuresed and responded very well, is currently tolerating room air without any dyspnea or edema. During his hospitalization he was noted to have episodes of nonsustained ventricular tachycardia, subsequently evaluated by cardiology recommended optimization of electrolytes and continuation of beta-yarelis therapy. He has had no further episodes of ventricular tachycardia now for >24 hours. Troponin trended down. No further chest pain, echocardiogram was performed formal report is pending. He will need to follow-up with his primary care doctor and cardiology in 1 week. Additional prescriptions given for atorvastatin 40 mg daily and aspirin 81 mg daily. Vital Signs/Physical Exam: Temp Pulse Resp BP Pulse Ox 97.9 F 79 14 113/80 95 09/20/23 12:00 09/20/23 12:00 09/20/23 12:00 09/20/23 12:00 09/20/23 12:00 General: Alert, In no apparent distress, Oriented x3 HEENT: Atraumatic, PERRLA, EOMI Neck: Supple Respiratory: Clear to auscultation bilaterally, Normal air movement Cardiovascular: Regular rate/rhythm, Normal S1 S2 Capillary refill: <2 Seconds Gastrointestinal: Normal bowel sounds, No tenderness Musculoskeletal: No tenderness Integumentary: No rashes Neurological: Normal speech, Normal tone, Normal affect Laboratory Data at Discharge: WBC 5.90 thou/uL (4.3-10.9) 09/19/23 03:06 Hgb 16.1 g/dL (13.6-17.9) 09/19/23 03:06 Hct 48.2 % (39.6-49.0) 09/19/23 03:06 Plt Count 177 thou/uL (152-406) 09/19/23 03:06 PT 13.5 SECONDS (9.5-12.5) H 09/16/23 12:45 INR 1.23 09/16/23 12:45 APTT 33.3 SECONDS (24.3-36.9) 09/16/23 12:45 Sodium 137 mEq/L (136-145) 09/20/23 06:27 Potassium 4.1 mEq/L (3.5-5.1) 09/20/23 06:27 BUN 25 mg/dL (7-18) H 09/20/23 06:27 Creatinine 0.93 mg/dL (0.70-1.30) 09/20/23 06:27 Glucose 102 mg/dL (74-106) 09/20/23 06:27 Phosphorus 3.6 mg/dL (2.5-4.9) 09/20/23 06:27 Magnesium 2.4 mg/dL (1.6-2.4) 09/20/23 06:27 Total Bilirubin 0.9 mg/dL (0.2-1.0) 09/16/23 12:45 AST 57 U/L (15-37) H 09/16/23 12:45 ALT 42 U/L (16-61) 09/16/23 12:45 Alkaline Phosphatase 83 U/L (45-117) 09/16/23 12:45 Triglycerides 41 mg/dL (<150) 09/17/23 03:13 Cholesterol 119 mg/dL (<200) 09/17/23 03:13 HDL Cholesterol 31 mg/dL (40-60) L 09/17/23 03:13 Cholesterol/HDL Ratio 3.84 09/17/23 03:13 Home Medications: Furosemide [Lasix*] 40 mg PO DAILY 09/17/23 Lisinopril [Zestril] 2.5 mg PO DAILY 09/17/23 Spironolactone 25 mg PO DAILY 09/17/23 carvediloL [Carvedilol] 6.25 mg PO BID 09/17/23 Aspirin Chewable [Aspirin Chewable*] 81 mg PO DAILY #30 tab.chew 09/20/23 Atorvastatin Calcium [Lipitor] 40 mg PO BEDTIME #30 tab 09/20/23 New Medications: Aspirin Chewable [Aspirin Chewable*] 81 mg PO DAILY #30 tab.chew Atorvastatin Calcium [Lipitor] 40 mg PO BEDTIME #30 tab Physician Discharge Instructions: Patient was admitted to the hospital with NSTEMI, acute on chronic systolic congestive heart failure, volume overload with elevated troponins. He was diuresed and responded very well, is currently tolerating room air without any dyspnea or edema. During his hospitalization he was noted to have episodes of nonsustained ventricular tachycardia, subsequently evaluated by cardiology recommended optimization of electrolytes and continuation of beta-yarelis therapy. He has had no further episodes of ventricular tachycardia now for >24 hours. Troponin trended down. No further chest pain, echocardiogram was performed formal report is pending. He will need to follow-up with his primary care doctor and cardiology in 1 week. Additional prescriptions given for atorvastatin 40 mg daily and aspirin 81 mg daily. Diet: AHA Activity: Ad beatriz Followup: NONE,NONE [Primary Care Provider] - 1 Week Erik Sandoval MD [ACTIVE - CAN ADMIT] - 1 Week Time spent managing pt's care (in minutes): 35
[2023-09-20 16:31] VITALS: BP 108/79; TEMP 97.6
--- NOTE | 2023-09-21 08:58 | ECHO ---
HEIGHT: 5 ft 11 in WEIGHT: 165 lb 0 oz DATE OF STUDY: 09/19/[address]: Eloy Siu DO 2-DIMENSIONAL: YES M.MODE: YES DOPPLER: YES COLOR FLOW: YES TDS: PORTABLE: YES DEFINITY: BUBBLE STUDY: DIAGNOSIS: NON ST ELEVATION MYOCARDIAL INFARCTION CARDIAC HISTORY: CATHERIZATION: NO SURGERY: NO PROSTHETIC VALVE: NO PACEMAKER: NO MEASUREMENTS (cm) DIASTOLIC (NORMALS) SYSTOLIC (NORMALS) IVSd 1.1 (0.6-1.2) LA Diam 3.4 (1.9-4.0) LVEF 15-20% LVIDd 6.5 (3.5-5.7) LVIDs 6.1 (2.0-3.5) %FS 6% LVPWd 1.2 (0.6-1.2) Ao Diam 3.0 (2.0-3.7) 2 DIMENSIONAL ASSESSMENT: RIGHT ATRIUM: NORMAL LEFT ATRIUM: NORMAL RIGHT VENTRICLE: NORMAL LEFT VENTRICLE: SEVERELY DILATED TRICUSPID VALVE: NORMAL MITRAL VALVE: MILD MITRAL REGURGITATION PULMONIC VALVE: NORMAL AORTIC VALVE: NORMAL PERICARDIAL EFFUSION: NONE AORTIC ROOT: NORMAL LEFT VENTRICULAR WALL MOTION: SEVERE GLOBAL HYPOKINESIS DOPPLER/COLOR FLOW: SEE BELOW COMMENTS: 1. SEVERELY DEPRESSED LEFT VENTRICULAR EJECTION FRACTION 15-20% 2. SEVERE GLOBAL HYPOKINESIS 3. SEVERELY DILATED LEFT VENTRICLE 4. MILD MITRAL REGURGITATION TECHNOLOGIST: JERILYN HYLTON
== END 2023-09-20 17:37 | disposition home or self-care (01) | DRG 280 ==
LOC: ER 12:19 → INTOOBSV 15:35 → ERHOLD 15:35 → OBSVTOIN 15:35 → 4TH 18:46 → OBSVTOIN 09-18 16:37
PROVIDERS: ADMIT Internal Medicine; ATTEND Hospitalist
DX: I11.0 Hypertensive heart disease with heart failure (principal); I21.4 Non-ST elevation (NSTEMI) myocardial infarction; I50.23 Acute on chronic systolic (congestive) heart failure; I47.20 Ventricular tachycardia, unspecified; I48.0 Paroxysmal atrial fibrillation; J10.1 Influenza due to other identified influenza virus with other respiratory manifestations; I49.3 Ventricular premature depolarization; E87.6 Hypokalemia; E83.39 Other disorders of phosphorus metabolism; D69.6 Thrombocytopenia, unspecified; F17.210 Nicotine dependence, cigarettes, uncomplicated; I25.2 Old myocardial infarction; Z11.52 Encounter for screening for COVID-19; Z79.82 Long term (current) use of aspirin; Z79.02 Long term (current) use of antithrombotics/antiplatelets; Z79.899 Other long term (current) drug therapy
CPT/HCPCS: 0241U; 36415; 71045; 80048; 80053; 80061; 81003; 83605; 83735; 83880; 84100; 84132; 84145; 84484; 85025; 85610; 85730; 87040; 87635; 87804; 93005; 93306; 94010; 96365; 96375; 99285; G0378; J1940; J2930; J3475; J3480; J7050; J7614

== ENCOUNTER 2023-10-05 08:07 | Inpatient (IN) | payer SELFPAY ==
--- OUTSIDE RECORDS SUMMARY | 2023-10-05 08:11 | XMS REPORT | Continuity of Care Document ---
:1960 Author Organization [facility] t Address [address] [facility]. [place]. [address] [place] [address] Care Team Providers Name Role Phone PANCHO Menjivar [facility] Primary Care P hysician Unavailable Dianne Christina RN Attending Clinician AKBAR ROSAS Attending Clinician Unavailable AKBAR ROSAS Admitting Clinician Unavailable Payers Payer Name Policy Type Policy Number Effective Date Expiration Date S ource Problems Condition Condition Condition Status Onset Resolution Last Treating Co mments Source Name Details Category Date Date Treatment Clinician Date Acute Acute Disease Active Univers right-side right-side 5-17 it y of d CHF d CHF 00:00: [place] (congestiv (congestiv 00 Me dical e heart e heart Branch failure) failure) LBBB (left LBBB (left Disease Active U nivers bundle bundle 9-30 ity of branch branch 00:00: [place] block) block) 00 Medical Branch Troponin I Troponin I Disease Active U nivers above above 9-30 [place] Essential Essential Disease Active Uni vers hypertensi hypertensi 9-30 it y of on on 00:00: [place] 00 Medical Branch Acute on Acute on Disease Active 2019- Unive rs 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 00 Medica l and and Branch diastolic diastolic congestive congestive heart heart failure failure New onset New onset Disease Active Uni vers of of 9-29 [place] congest[place] heart heart 00 Medical failure failure Branch Allergies, Adverse Reactions, Alerts Allergy Allergy Status Severity Reaction(s) Onset Inactive Treating Comm ents Source Name Type Date Date Clinician NO KNOWN Drug Active Univers ALLERGIE Class ity of S [place] Medical Newborn Social History Social Habit Start Date Stop Date Quantity Comments Source History [facility] o f Alcohol Comment [place] Med ical [facility] Alcohol intake 2021-03-30 2021-03-30 Current drinker Unive rsity of 00:00:00 00:00:00 of alcohol [place] Medical (finding) Branch History [facility] 2020-08-14 2020-08-14 5 University o f Alcohol Frequency 00:00:00 00:00:00 [place] M edical Branch History [facility] 2020-08-14 2020-08-14 3 University o f Alcohol Std Drinks 00:00:00 00:00:00 [place] [facility] History [facility] 2020-08-14 2020-08-14 99 University o f Alcohol Binge 00:00:00 00:00:00 [place] Medic al Branch Cigarettes smoked 2020-08-12 2020-08-12 Univers ity of current (pack per 00:00:00 00:00:00 [facility] ed) - Reported Branch Cigarette 2020-08-12 2020-08-12 University of pack-years 00:00:00 00:00:00 [facility] Tobacco use and 2020-08-12 2020-08-12 Never used Universit y of exposure 00:00:00 00:00:00 [facility] Sex Ass[birth year] At [birth year] Universit y of 00:00:00 00:00:00 [facility] Smoking Status Start Date Stop Date Source Current every day smoker 2020-08-12 00:00:00 Uni versity of [facility] Medications Ordered Filled Start Stop Current Ordering Indication Dosage Frequency Signature Comments Components Source Medication Medication Date Date Medication? Clinician (SIG) Name Name furosemide Yes [id number] 40mg Take 1 U nivers 40 mg 5-18 tablet by ity of tablet 00:00: mouth 00 daily. Medical Branch lisinopriL Yes [id number] 2.5mg Take 1 Univers 2.5 mg 5-18 tablet by ity of tablet 00:00: mouth 00 daily. Medical Branch metoprolol Yes [id number] 50mg Take 1 U nivers tartrate 50 5-18 tablet by ity of mg tablet 00:00: mouth 2 00 (two) Medical times Branch daily. atorvastati Yes [id number] 40mg Take 1 Univers n 40 mg 5-18 tablet by ity of tablet 00:00: mouth at [place] 00 bedtime. Medical Branch aspirin 81 Yes [id number] 81mg Take 1 U nivers mg chewable 5-18 tablet by ity of tablet 00:00: mouth 00 daily. Medical Branch Procedures This patient has no known procedures. Encounters Start End Encounter Admission Attending Care Care Encounter Source Date/Time Date/Time Type Type Clinicians Facility Department ID 2023-01-05 2023-01-05 Outpatient [facility] SFA [id number] Pancho 15:13:30 15:13:30 0222 F Brian 2021-08-17 2021-08-17 Patient Dianne Christina [id number] Univers 00:00:00 00:00:00 Outreach E Jean [id number] i [id number] [id number] Branch 2021-03-30 2021-03-31 Outpatient X RALPH [facility] KRISTOPHER [id number] Univers 11:44:00 18:57:00 AKBAR [facility] 2020-08-12 2020-08-12 Emergency X [facility] ERT [id number] Univers 10:05:00 10:05:00 [facility] Results Test Description Test Time Test Comments Results Result Comments Source COMPREHENSIVE METABOLIC PANEL 2022-02-04 03:51:26 Test Item Value Reference Range Interpretation Comme nts GLUCOSE (test code = 2217) 77 MG/DL 70-99 BUN (test code = 2208) 10 MG/DL 8-23 CREATININE (test code = 0.79 MG/DL 0.80-1.40 L 2213) eGFR (2020 CKD-EPI) (test 102 ML/MIN/1.73 >60 code = 27608) CALC BUN/CREAT (test code = 13 RATIO 6-28 2234) SODIUM (test code = 223) 137 MEQ/L 133-146 POTASSIUM (test code = 3.9 MEQ/L 3.5-5.4 2227) CHLORIDE (test code = 2215) 100 MEQ/L 95-107 CARBON DIOXIDE (test code = 26 MEQ/L -2205) CALCIUM (test code = 2208) 9.5 MG/DL 8.5-10.5 PROTEIN, TOTAL (test code = 8.2 G/DL 6.1-8.3 2228) ALBUMIN (test code = 220) 4.1 G/DL 3.5-5.2 CALC GLOBULIN (test code = 4.1 G/DL 1.9-3.7 H 2239) CALC A/G RATIO (test code = 1.0 RATIO 1.0-2.6 2233) BILIRUBIN, TOTAL (test code 0.4 MG/DL See_Comment [Automated message] The = 2206) system which ge nerated this result transmit katharina reference range: <=1.2. T he reference range was not u sed to interpret this result as normal/abnormal . ALKALINE PHOSPHATASE (test 94 U/L 40-123 code = 2203) AST (test code = 221) 94 U/L 9-50 H ALT (test code = 221) 53 U/L 5-50 H UNLE SS OTHERWISE INDICATED, ALL TESTING PER FORMED ATCLINICAL PATH [facility] [place]. [address] [place] [address] [address] LABORATORY DIRE CTOR: ZEKE STERN M.D. CLIA NUMBER [id number] [facility] [place]. [id number] COMPREHENSIVE METABOLIC [id number] 03:57:49 Test Item Value Reference Range Interpretation Comments GLUCOSE (test code = 94 MG/DL 70-99 2216) BUN (test code = 17 MG/DL 8-23 2207) CREATININE (test 1.03 MG/DL 0.80-1.40 code = 2213) eGFR (2020 CKD-EPI) 83 >60 (test code = 21215) ML/MIN/1.73 CALC BUN/CREAT (test 17 RATIO 6-28 code = 223) SODIUM (test code = 144 MEQ/L 449-915 6787) POTASSIUM (test code 3.9 MEQ/L 3.5-5.4 = 2227) CHLORIDE (test code 105 MEQ/L 95-107 = 2214) CARBON DIOXIDE (test 26 MEQ/L 19-31 code = 220) CALCIUM (test code = 9.6 MG/DL 8.5-10.5 2208) PROTEIN, TOTAL (test 8.7 G/DL 6.1-8.3 H code = 2229) ALBUMIN (test code = 4.4 G/DL 3.5-5.2 2200) CALC GLOBULIN (test 4.3 G/DL 1.9-3.7 H code = 2240) CALC A/G RATIO (test 1.0 RATIO 1.0-2.6 code = 2234) BILIRUBIN, TOTAL 0.5 MG/DL See_Comment [Automated message] (test code = 220) The syste RADEUM which generated this result transmitted ref erence range: <=1.2. T he reference range was not used to int erpret this result as normal/abnormal . ALKALINE PHOSPHATASE 100 U/L 40-123 (test code = 2203) AST (test code = 85 U/L 9-50 H 2217) ALT (test code = 54 U/L 5-50 H UNLESS OTH ERWISE 2218) INDICATED, ALL TESTING PERFORM ED ATCLINICAL PATH [facility]. [address] [place] [id number] [place] [address] DIRECTOR: ZEKE STERN M.D. CLIA NUMBER [id number] [place] [id number] LIPID [id number] 04:02:34 Test Item Value Reference Range Interpretation Comments CHOLESTEROL (test 122 MG/DL <200 code = 2210) TRIGLYCERIDES (test 122 MG/DL <150 code = 2232) HDL CHOLESTEROL (test 34 MG/DL >39 L code = 2220) CALC LDL CHOL (test 68 MG/DL <100 NOTE: C ALCULATED LDL code = 2237) IS BASED ON ANGELA-SHEA METHOD WHICHINCLUDES ADJUSTABLE TRIGLYCERIDE:VL DL CHOLESTEROL RAT IO.THIS FACTOR VARIES B Y MEASURED TRIGLY CERIDE AND NON-HDLCHOL ESTEROL CONCENTRATIONS WITH INCREASED CALCU LATED LDL SEENIN HIGH ER TRIGLYCERIDE OR LOWER NON-HDL SPECIME NS. FOR MOREINFORMATION , SEE CLIENT ANNOUNCE MENT AT [email or web address] RISK RATIO LDL/HDL 2.00 RATIO <3.55 (test code = 2238) COMPREHENSIVE METABOLIC [id number] 04:02:34 Test Item Value Reference Range Interpretation Comments GLUCOSE (test code = 92 MG/DL 70-99 2216) BUN (test code = 12 MG/DL 8-23 2207) CREATININE (test 1.28 MG/DL 0.80-1.40 code = 2213) eGFR (2020 CKD-EPI) 64 >60 (test code = 84919) ML/MIN/1.73 CALC BUN/CREAT (test 9 RATIO 6-28 code = 2234) SODIUM (test code = 145 MEQ/L 757-642 8085) POTASSIUM (test code 4.2 MEQ/L 3.5-5.4 = 2227) CHLORIDE (test code 109 MEQ/L 95-107 H = 2214) CARBON DIOXIDE (test 22 MEQ/L 19-31 code = 2205) CALCIUM (test code = 9.5 MG/DL 8.5-10.5 2208) PROTEIN, TOTAL (test 8.1 G/DL 6.1-8.3 code = 2228) ALBUMIN (test code = 4.0 G/DL 3.5-5.2 2200) CALC GLOBULIN (test 4.1 G/DL 1.9-3.7 H code = 2239) CALC A/G RATIO (test 1.0 RATIO 1.0-2.6 code = 2233) BILIRUBIN, TOTAL 0.7 MG/DL See_Comment [Automated message] (test code = 2206) The syste RADEUM which generated this result transmitted ref erence range: <=1.2. T he reference range was not used to int erpret this result as normal/abnormal . ALKALINE PHOSPHATASE 103 U/L 40-123 (test code = 2203) AST (test code = 45 U/L 9-50 2217) ALT (test code = 29 U/L 5-50 UNLESS OTH ERWISE 2218) INDICATED, ALL TESTING PERFORM ED ATCLINICAL PATH [facility] [place]. [address] [facility] [place] [address] [facility] DIRECTOR: Coleman KOIA NUMBER [id number] CAP ACCREDITATION N O. [id number]
[2023-10-05] MEDS ORDERED: carvediloL 6.25 MG TAB ONE (08:42)
[2023-10-05] MEDS ORDERED: lisinopriL 5 MG TAB ONE (08:42)
[2023-10-05] MEDS ORDERED: ONDANSETRON 4 MG/2 ML VIAL ONE (08:43)
[2023-10-05] MEDS ORDERED: ALBUTEROL 2.5 MG/3 ML NEB SOL ONE (08:43)
[2023-10-05] MEDS ORDERED: IPRATROPIUM BROM 0.5MG/2.5ML ONE (08:43)
[2023-10-05 09:14] LABS: Absolute Lymphocytes (CBC) 1.6 K/uL (0.7-4.9); Hematocrit 38.4 % (39.6-49.0); Lymphocytes % 30.4 % (15.3-44.8); MCV 86.1 fL (80-100); MPV 10.6 fL (7.6-11.3); Platelets 164 thou/uL (152-406); RBC Red Blood Cell Count 4.46 M/uL (4.33-5.43)
[2023-10-05 09:16] LABS: Protime INR 1.24
[2023-10-05 09:26] LABS: Albumin 2.8 g/dL (3.4-5.0); Bilirubin Direct 0.3 mg/dL (0-0.2); Magnesium 1.5 mg/dL (1.6-2.4); Potassium 3.7 mEq/L (3.5-5.1); Protein, Total 7.1 g/dL (6.4-8.2)
[2023-10-05 09:30] LABS: Troponin High Sensitivity 81.2 pg/mL (<58.9)
[2023-10-05 09:38] LABS: SARS-CoV-2 Antigen Rapid Res Negative (Negative)
[2023-10-05 09:49] LABS: Bilirubin Indirect, Calculated 0.4 mg/dL (0.2-0.8); Bilirubin Total 0.7 mg/dL (0.2-1.0)
[2023-10-05] MEDS ORDERED: MAGNESIUM SULFATE 1 gm IVPB 1 GM/100 ML BAG IV ONE (09:56)
--- NOTE | 2023-10-05 10:14 | RAD REPORT ---
EXAM DESCRIPTION: Suryt Single View10/05/2023 8:52 am CLINICAL HISTORY: SOB COMPARISON: Chest Single View dated 09/16/2023; Chest Single View dated 02/15/2019 TECHNIQUE: Portable AP view of the chest. FINDINGS: Hazy perihilar opacities and interstitial prominence mildly progressed since the prior exa m. Moderate cardiomegaly. No pneumothorax or effusion. The mediastinal contours are unremarkable. IMPRESSION: Progressive perihilar opacities and interstitial prominence, suggestive of congestive he art failure or early pulmonary edema.
--- NOTE | 2023-10-05 11:11 | RAD REPORT ---
EXAM DESCRIPTION: CT - Chest For Pe Angio - 10/05/2023 9:35 am CLINICAL HISTORY: sob, elevated ddimer COMPARISON: No comparisons TECHNIQUE: Thin axial CT images of the chest were obtained following administration of 100 mL Isovue 370 IV contrast. Multiplanar reconstructions, and maximum intensity projection reconstructions were generated and reviewed. Exam utilizes a protocol for optimal evaluation of pulmonary arterial tree. All CT scans are performed using dose optimization technique as appropriate and may include automated exposure control or mA/KV adjustment according to patient size. FINDINGS: Pulmonary arteries are normal. No emboli or other suspicious finding, although motion christelle fact particularly at the lung bases limits evaluation. No acute or significant aorta findings. Subsegmental bibasilar atelectasis. Mild central interstitial prominence, however no mass or other fo lillie infiltrate in the lung parenchyma. Mild centrilobular emphysematous changes. No pleural thickenin g. Small bilateral pleural effusions larger on the right. No pneumothorax. Marked cardiomegaly. No abnormal mediastinal or hilar masses or lymphadenopathy seen. No chest wall mass or abnormal axill iary lymphadenopathy. IMPRESSION: No evidence of acute central pulmonary emboli. Marked cardiomegaly. Small bilateral pleural effusions larger on the right with mild central intersti tial prominence. A degree of congestive heart failure may be present, please correlate clinically.
--- NOTE | 2023-10-05 11:29 | ER ---
Nurse's Notes [facility] Name: Milan Machuca Age: 62 yrs Sex: Male : 1960 Arrival Date: 10/05/2023 Time: 08:07 Bed 6 Private MD: Diagnosis: Acute diastolic (congestive) heart failure;Acute respiratory failure with hypoxia Presentation: 10/05 08:09 Chief complaint: EMS states: SOB and dry cough x 3-4 days, N/V and back pain with cough hb today. BP 168/86, SpO2 87% on RA, improved to 94% on 2LNC, BGL 128. Hx of HTN and CHF. 20g RFA. Nitro SL x 1 administered [employer]IAN. Recently inpatient for pneumonia. Coronavirus screen: Client presents with at least one sign or symptom that may indicate coronavirus-19. Provider contacted for isolation considerations. Ebola Screen: No symptoms or risks identified at this time. Initial Sepsis Screen: Does the patient meet any 2 criteria? RR > 20 per min. HR > 90 bpm. No. Patient's initial sepsis screen is negative. Does the patient have a suspected source of infection? No. Patient's initial sepsis screen is negative. Risk Assessment: Do you want to hurt yourself or someone else? Patient reports no desire to harm self or others. Onset of symptoms was October 01, 2023. 08:09 Method Of Arrival: [facility]: [facility] hb 08:09 Acuity: AVELINO 2 hb Triage Assessment: 08:10 General: Appears in no apparent distress. Behavior is calm, cooperative. Pain: Pain hb currently is 8 out of 10 on a pain scale. EENT: No signs and/or symptoms were reported regarding the EENT system. Neuro: Level of Consciousness is awake, alert, obeys commands, Oriented to person, place, time, situation. Cardiovascular: Patient's skin is warm and dry. Rhythm is sinus tachycardia. Respiratory: Reports shortness of breath cough that is non-productive, Respiratory effort is mildly labored Respiratory pattern is tachypnea. GI: Reports nausea, vomiting. : No signs and/or symptoms were reported regarding the genitourinary system. Derm: Skin is pink, warm \T\ dry. Musculoskeletal: Reports back pain, worse with cough. Historical: - Allergies: 08:13 No Known Allergies; hb - Home Meds: 08:31 aspirin 81 mg Oral tablet,chewable 1 tab daily [Active]; furosemide 40 mg Oral tablet 1 sb4 tab daily [Active]; lisinopril 2.5 mg Oral tablet 1 tab daily [Active]; carvedilol 6.25 mg oral tablet 1 tab 2 times per day [Active]; spironolactone 25 mg Oral tablet 1 tab daily [Active]; atorvastatin 40 mg oral tablet 1 tab every day at bedtime [Active]; - PMHx: 08:13 CHF; Hypertensive disorder; Myocardial infarction; hb - Immunization history:: Adult Immunizations up to date. - Social history:: Smoking status: Patient denies any tobacco usage or history of. Screenin:17 [facility] ED Fall Risk Assessment (Adult) Score/Fall Risk Level 0 - 2 = Low Risk hb Oriented to surroundings, Maintained a safe environment, Educated pt \T\ family on fall prevention, incl call for assistance when getting out of bed. Abuse screen: Denies threats or abuse. Denies injuries from another. Nutritional screening: No deficits noted. Tuberculosis screening: No symptoms or risk factors identified. Assessment: 08:17 General: See triage assessment . hb 09:06 Reassessment: No changes from previously documented assessment. Patient and/or family hb updated on plan of care and expected duration. Pain level reassessed. 10:11 Reassessment: Patient appears in no apparent distress at this time. Patient and/or hb family updated on plan of care and expected duration. Pain level reassessed. Patient is alert, oriented x 3, equal unlabored respirations, skin warm/dry/pink. 13:36 General: attempted to call report, nurse will return my call. ap3 14:02 General: report called to NEHEMIAS Bethea. ap3 Vital Signs: 08:09 BP 161 / 107; Pulse 101; Resp 26; Temp 97.9(O); Pulse Ox 88% on R/A; Weight 77.11 kg; hb Height 6 ft. 0 in. ; Pain 8/10; 09:06 BP 152 / 114; Pulse 105; Resp 19; Pulse Ox 99% on Nebulizer Mask; hb 10:11 BP 134 / 57; Pulse 65; Resp 17; Pulse Ox 95% ; hb 08:09 Body Mass Index 23.06 (77.11 kg, 182.88 cm) hb 08:09 Pain Scale: Adult hb ED Course: 08:09 Patient arrived in ED. hb 08:09 Jojo Johnson PA-C is PHCP. sb4 08:09 Jose Alegre MD is Attending Physician. sb4 08:13 Triage completed. hb 08:17 Arm band placed on. hb 08:17 Patient has correct armband on for positive identification. Bed in low position. Call hb light in reach. Provided Education on: tests, result times. 08:41 EKG done, by ED staff, reviewed by Jojo Johnson PA-C. ap3 08:53 XRAY CXR (1 view) In Process Unspecified. EDMS 08:57 Inserted saline lock: 22 gauge in right forearm, using aseptic technique. Blood hb collected. 08:59 BMP Sent. hb 08:59 Blood Culture Adult (2) Sent. hb 08:59 CBC with Diff Sent. hb 08:59 CPK Sent. hb 08:59 D-Dimer Sent. hb 08:59 Hepatic Function Sent. hb 08:59 Lipase Sent. hb 08:59 Magnesium Sent. hb 08:59 NT PRO-BNP Sent. hb 08:59 PT-INR Sent. hb 08:59 Ptt, Activated Sent. hb 09:00 Troponin HS Sent. hb 09:06 Lidia Rivera, RN is Primary Nurse. hb 09:36 CT Chest For PE Angio In Process Unspecified. EDMS 11:28 Frantz Gutierrez MD is Hospitalizing Provider. sb4 14:02 No provider procedures requiring assistance completed. Patient admitted, IV remains in ap3 place. Administered Medications: 08:46 Not Given (Physician Discretion): ondansetron 4 mg IVP once; over 2 minutes sb4 08:59 Drug: DuoNeb Nebulize (3:1) (2.5 mg - 0.5 mg) 3 ml Nebulizer once Route: Nebulizer; hb 14:03 Follow up: Response: No adverse reaction ap3 08:59 Drug: carvedilol PO 6.25 mg PO once; administer with food Route: PO; hb 14:03 Follow up: Response: No adverse reaction ap3 08:59 Drug: Lisinopril PO 2.5 mg PO once Route: PO; hb 14:03 Follow up: Response: No adverse reaction ap3 09:45 Drug: Magnesium Sulfate IVPB 1 grams IVPB once over 1 hrs Route: IVPB; Infused Over: 1 ap3 hrs; Site: right antecubital; 10:47 Follow up: IV Status: Completed infusion; IV Intake: 100ml ap3 Medication: 08:17 VIS not applicable for this client. hb Intake: 10:47 IV: 100ml; Total: 100ml. ap3 Outcome: 11:29 Decision to Hospitalize by Provider. sb4 14:02 Admitted to Tele accompanied by tech, room 405, Report called to Neema ap3 14:02 Condition: good 14:02 Discharge instructions given to patient, Instructed on the need for admit, 15:13 Patient left the ED. cm10 Signatures: Dispatcher [employer] EDMS Lidia Rivera RN RN hb Krystal Hansen RN RN ap3 Jojo Johnson PA-C PA-C sb4 Aleena Mercer RN RN cm10 Corrections: (The following items were deleted from the chart) 08:14 08:09 Chief complaint: EMS states: SOB and dry cough x 3-4 days, N/V today. BP 168/86, hb SpO2 87% on RA, improved to 94% on 2LNC, BGL 128. Hx of HTN and CHF. 20g RFA. Nitro SL x 1 administered [employer] TECHNICIAN. Recently inpatient for pneumonia. hb
--- NOTE | 2023-10-05 11:29 | EDPHYS ---
Physician Documentation [facility] Name: Milan Machuca Age: 62 yrs Sex: Male : 1960 Arrival Date: 10/05/2023 Time: 08:07 Bed 6 Private MD: ED Physician Jose Alegre HPI: 10/05 08:26 This 62 yrs old Black Male presents to ER via EMS with complaints of Shortness Of sb4 Breath, Nausea/Vomiting. 08:34 Patient presents with progressively worsening shortness of breath associated with sb4 generalized weakness, fatigue, and nausea/vomiting. He was hospitalized about 2 weeks ago for similar symptoms. He has not been able to afford his medications therefore has not been taking them. He was noted to be tachycardic, tachypneic, hypoxic, and hypertensive upon arrival. Historical: - Allergies: 08:13 No Known Allergies; hb - Home Meds: 08:31 aspirin 81 mg Oral tablet,chewable 1 tab daily [Active]; furosemide 40 mg Oral tablet 1 sb4 tab daily [Active]; lisinopril 2.5 mg Oral tablet 1 tab daily [Active]; carvedilol 6.25 mg oral tablet 1 tab 2 times per day [Active]; spironolactone 25 mg Oral tablet 1 tab daily [Active]; atorvastatin 40 mg oral tablet 1 tab every day at bedtime [Active]; - PMHx: 08:13 CHF; Hypertensive disorder; Myocardial infarction; hb - Immunization history:: Adult Immunizations up to date. - Social history:: Smoking status: Patient denies any tobacco usage or history of. ROS: 08:34 Skin: Negative for injury, rash, and discoloration, sb4 08:34 Constitutional: Positive for fatigue, 08:34 Respiratory: Positive for dyspnea on exertion, shortness of breath, 08:34 Abdomen/GI: Positive for nausea and vomiting, Exam: 08:34 Constitutional: This is a well developed, well nourished patient who is awake, alert, sb4 and in no acute distress. Head/Face: Normocephalic, atraumatic. Eyes: Extra-ocular motions intact. Periorbital areas with no swelling, redness, or edema. ENT: Mucous membranes moist. Cardiovascular: Regular rate and rhythm with a normal S1 and S2. Respiratory: Lungs have equal breath sounds bilaterally, clear to auscultation and percussion. No rales, rhonchi or wheezes noted. No increased work of breathing, no retractions or nasal flaring. Abdomen/GI: Soft, non-tender, no distension. Skin: Warm, dry with normal turgor. Normal color with no rashes, no lesions, and no evidence of cellulitis. MS/ Extremity: Pulses equal, no cyanosis. Neurovascular intact. Full, normal range of motion. Neuro: Awake and alert, GCS 15, oriented to person, place, time, and situation. Motor strength 5/5 in all extremities. Sensory grossly intact. Vital Signs: 08:09 BP 161 / 107; Pulse 101; Resp 26; Temp 97.9(O); Pulse Ox 88% on R/A; Weight 77.11 kg; hb Height 6 ft. 0 in. ; Pain 8/10; 09:06 BP 152 / 114; Pulse 105; Resp 19; Pulse Ox 99% on Nebulizer Mask; hb 10:11 BP 134 / 57; Pulse 65; Resp 17; Pulse Ox 95% ; hb 08:09 Body Mass Index 23.06 (77.11 kg, 182.88 cm) hb 08:09 Pain Scale: Adult hb MDM: 08:09 Patient medically screened. sb4 08:34 Differential diagnosis: CHF exacerbation, Chronic Obstructive Pulmonary Disease sb4 pneumonia, pulmonary edema. 11:27 Antibiotic administration: Not indicated, the patient does not have an appreciated sb4 infiltrate. Data interpreted: Pulse oximetry: on 2L(s) per nasal canula, is 96 %. Data reviewed: vital signs, nurses notes, EMS record, lab test result(s), EKG, radiologic studies, and as a result, I will admit patient. Consideration of Admission/Observation Patient was admitted/placed on observation. Care significantly affected by the following chronic conditions: Hypertension, Congestive Heart Failure. Care significantly affected by the following Social Determinants of Health: Poor access to healthcare and/or lack of insurance. Counseling: I had a detailed discussion with the patient and/or guardian regarding the historical points, exam findings, and any diagnostic results supporting the discharge/admit diagnosis, the presence of at least one elevated blood pressure reading (>120/80) during this emergency department visit, lab results, radiology results, the need for further work-up and treatment in the hospital. 10/05 08:21 Order name: BMP; Complete Time: 09:59 sb4 10/05 08:21 Order name: Blood Culture Adult (2) sb4 10/05 08:21 Order name: CBC with Diff; Complete Time: 09:19 sb4 10/05 08:21 Order name: CPK; Complete Time: 09:59 sb4 10/05 08:21 Order name: D-Dimer; Complete Time: 09:19 sb4 10/05 08:21 Order name: Hepatic Function; Complete Time: 09:59 sb4 10/05 08:21 Order name: Lipase; Complete Time: 09:59 sb4 10/05 08:21 Order name: Magnesium; Complete Time: 09:59 sb4 10/05 08:21 Order name: NT PRO-BNP; Complete Time: 09:59 sb4 10/05 08:21 Order name: PT-INR; Complete Time: 09:19 sb4 10/05 08:21 Order name: Ptt, Activated; Complete Time: 09:19 sb4 10/05 08:21 Order name: Troponin HS; Complete Time: 09:59 sb4 10/05 08:21 Order name: SARS RAPID; Complete Time: 09:38 sb4 10/05 08:21 Order name: Flu; Complete Time: 09:38 sb4 10/05 08:56 Order name: Lactate w/ 2H reflex if indic.; Complete Time: 09:27 sb4 10/05 12:37 Order name: Troponin High Sensitivity [facility] 10/05 12:37 Order name: Troponin High Sensitivity [facility] 10/05 12:37 Order name: Troponin High Sensitivity [facility] 10/05 08:21 Order name: XRAY CXR (1 view); Complete Time: 10:15 sb4 10/05 09:20 Order name: CT Chest For PE Angio; Complete Time: 11:16 sb4 10/05 08:21 Order name: EKG; Complete Time: 08:21 sb4 10/05 12:37 Order name: CONS Physician Consult [facility] 10/05 08:21 Order name: Cardiac monitoring; Complete Time: 08:41 sb4 10/05 08:21 Order name: EKG - Nurse/Tech; Complete Time: 08:41 sb4 10/05 08:21 Order name: IV Saline Lock; Complete Time: 08:59 sb4 10/05 08:21 Order name: Labs collected and sent; Complete Time: 08:59 sb4 10/05 08:21 Order name: O2 Per Protocol; Complete Time: 08:41 sb4 10/05 08:21 Order name: O2 Sat Monitoring; Complete Time: 08:41 sb4 EC:47 Rate is 100 beats/min. Rhythm is regular, Sinus Rhythm with Occasional PVCs, PACs. GA sb4 interval is normal at 192 msec. QRS interval is normal at 100 msec. QT interval is prolonged at [address] changes noted. Clinical impression: Abnormal EKG without significant change, LVH, and No evidence of ischemia. Interpreted by me. Reviewed by me. Administered Medications: 08:46 Not Given (Physician Discretion): ondansetron 4 mg IVP once; over 2 minutes sb4 08:59 Drug: DuoNeb Nebulize (3:1) (2.5 mg - 0.5 mg) 3 ml Nebulizer once Route: Nebulizer; hb 14:03 Follow up: Response: No adverse reaction ap3 08:59 Drug: carvedilol PO 6.25 mg PO once; administer with food Route: PO; hb 14:03 Follow up: Response: No adverse reaction ap3 08:59 Drug: Lisinopril PO 2.5 mg PO once Route: PO; hb 14:03 Follow up: Response: No adverse reaction ap3 09:45 Drug: Magnesium Sulfate IVPB 1 grams IVPB once over 1 hrs Route: IVPB; Infused Over: 1 ap3 hrs; Site: right antecubital; 10:47 Follow up: IV Status: Completed infusion; IV Intake: 100ml ap3 Disposition: 16:00 Co-signature as Attending Physician, Jose Alegre MD I reviewed the patient's care rn provided by the Advanced Practice Provider and agree with the diagnosis and treatment plan. Disposition Summary: 10/05/23 11:29 Hospitalization Ordered Notes: Hospitalization Status: Inpatient Admission sb4 Provider: Frantz Gutierrez sbKyra Location: Telemetry/MedSurg (Inpatient) sb4 Condition: Fair sb4 Problem: an ongoing problem sb4 Symptoms: are unchanged sb4 Bed/Room Type: Standard sb4 Room Assignment: 425(10/05/23 13:08) bd Diagnosis - Acute diastolic (congestive) heart failure sb4 - Acute respiratory failure with hypoxia sb4 Forms: - Medication Reconciliation Form sb4 - SBAR form sb4 - Leadership Thank You Letter sb4 Signatures: Dispatcher [employer] ED Jazmin Gutierrez Jose Youssef MD MD rn Baxter, Heather, RN RN hb Prokisch, Amanda, RN RN ap3 Brown, Sophia, DEMARCO PAL sb4 Corrections: (The following items were deleted from the chart) 08:49 08:47 Rate is 100 beats/min. Rhythm is regular, Sinus Rhythm with Occasional PVCs, sb4 PACs. GA interval is normal at 192 msec. QRS interval is normal at 100 msec. QT interval is prolonged at [address] changes noted. Clinical impression: LVH and No evidence of ischemia. Interpreted by me. Reviewed by me. sb4 13:08 11:29 sb4 bd
[2023-10-05] MEDS ORDERED: ACETAMINOPHEN 325 MG TABLET PO PRN ×2 (12:35→12:44)
[2023-10-05] MEDS ORDERED: HYDROCODONE/APAP 10/325 TAB PO PRN (12:35)
[2023-10-05] MEDS ORDERED: ONDANSETRON 4 MG/2 ML VIAL IV PRN (12:47)
[2023-10-05] MEDS ORDERED: LABETALOL 20 MG/4ML SYRINGE IV PRN (12:51)
[2023-10-05] MEDS ORDERED: FUROSEMIDE 40 MG/4 ML VIAL IV ONE (13:00)
[2023-10-05] MEDS ORDERED: MAGNESIUM OXIDE 400 MG TAB PO ONE (13:00)
--- NOTE | 2023-10-05 13:01 | P.HP ---
Certification for Inpatient Patient admitted to: Inpatient With expected LOS: >2 Midnights Patient will require the following post-hospital care: None Practitioner: I am a practitioner with admitting privileges, knowledge of patient current condition, hospital course, and medical plan of care. Services: Services provided to patient in accordance with Admission requirements found in Title 42 Section 412.3 of the Code of Federal Regulations Patient History Date of Service: 10/05/23 Reason for admission: SOB History of Present Illness: Patient is a 62-year-old male with a past medical history significant for hypertension, NM, CHF, hyperlipidemia, nicotine dependence who presents with complaint of shortness of breath that has been ongoing for the past 3 days. Patient reported that he initially started coughing 1 week ago. Patient reported that this morning he started experiencing intractable nausea and vomiting. Patient also reports low back pain rated as 8/10 in severity and described as sharp in quality. Patient reported associated signs and symptoms of headache, dizziness, chills, diaphoresis, fatigue and generalized weakness. Patient denies any other signs and symptoms. Symptoms are aggravated or relieved by nothing. Patient decided to present to the hospital due to worsening symptoms. Of note, patient has not been compliant with his home medications due to financial constraints. Allergies No Known Allergies Allergy (Unverified 09/16/23 13:37) Home Medications: Furosemide [Lasix*] 40 mg PO DAILY 09/17/23 Lisinopril [Zestril] 2.5 mg PO DAILY 09/17/23 Spironolactone 25 mg PO DAILY 09/17/23 carvediloL [Carvedilol] 6.25 mg PO BID 09/17/23 Aspirin Chewable [Aspirin Chewable*] 81 mg PO DAILY #30 tab.chew 09/20/23 Atorvastatin Calcium [Lipitor] 40 mg PO BEDTIME #30 tab 09/20/23 - Past Medical/Surgical History Diabetic: No -: CHF -: NM -: hypertension -: hyperlipidemia Past Surgical History: Patient denies surgical history - Family History Family History: Reviewed- Non-Contributory - Social History Smoking Status: Light Tobacco smoker (1-9 cigarettes/day) Counseled patient to stop smoking for: less than 10 minutes Smoking therapy provided: Yes Patient receptive to therapy: No Alcohol use: Yes CD- Drugs: No Caffeine use: Yes Place of Residence: Home Review of Systems General: Chills, Sweats, Weakness, Other (Fatigue) ENT: Unremarkable Respiratory: Cough, Shortness of Breath Cardiovascular: Unremarkable Gastrointestinal: Nausea, Vomiting Genitourinary: Unremarkable Musculoskeletal: Back Pain Integumentary: Unremarkable Neurological: Weakness, Other (Dizziness, ZAMBRANO) Lymphatics: Unremarkable Physical Examination - Physical Exam General: Alert, In no apparent distress, Oriented x3, Cooperative HEENT: Atraumatic, PERRLA, Mucous membr. moist/pink, EOMI, Sclerae nonicteric Neck: Supple, 2+ carotid pulse no bruit, No LAD, Without JVD or thyroid abnormality Respiratory: Normal air movement, Diminished Cardiovascular: No edema, Regular rate/rhythm, Normal S1 S2 Capillary refill: <2 Seconds Gastrointestinal: Normal bowel sounds, Soft and benign, No tenderness Musculoskeletal: No clubbing, No swelling, No tenderness Integumentary: No rashes, No significant lesion Neurological: Normal speech, Normal tone, Normal affect Lymphatics: No axilla or inguinal lymphadenopathy - Studies Laboratory Data (last 24 hrs) 10/05/23 10/05/23 10/05/23 08:49 08:49 08:49 WBC 5.30 Hgb 12.6 L Hct 38.4 L Plt Count 164 PT 13.6 H INR 1.24 APTT 33.4 Sodium 144 Potassium 3.7 BUN 11 Creatinine 0.87 Glucose 91 Magnesium 1.5 L Total Bilirubin 0.7 AST 38 H ALT 31 Alkaline Phosphatase 82 Lipase 34 Microbiology Data (last 24 hrs): 10/05/23 08:48 Nasopharnyx Influenza Type A Antigen Screen - Final 10/05/23 08:48 Nasopharnyx Influenza Type B Antigen Screen - Final Assessment and Plan - Plan --Acute on chronic systolic CHF exacerbation. CT chest PE protocol indicates Small bilateral pleural effusions larger on the right with mild central interstitial prominence. BNP--[id number] Patient placed on diuresis with Lasix. Daily weight and strict I/O. Cardiology consulted. We will await further recommendations. -- Elevated D-dimer. CT chest PE protocol negative for PE. Continue supportive care. --Hypertension. Poorly controlled. Continue home medications and labetalol as needed. --Hyperlipidemia. Continue statin --History of NM. Continue aspirin and statin. -- Nicotine dependence. Patient counseled on tobacco cessation. Refuses nicotine patch. --Headache. Tylenol as needed. --Nausea and vomiting. Antiemetics on board. Continue supportive care. -- Back pain. We will manage pain with current pain medication regimen. --Hypomagnesemia. Replete as needed. --Medication noncompliance. Social service consulted for help with medications. --DVT prophylaxis with Lovenox subQ Discharge Plan: Home Plan to discharge in: Greater than 2 days - Advance Directives Does patient have a Living Will: No Does patient have a Durable POA for Healthcare: No - Code Status/Comfort Care Code Status Assessed: Yes Physician Review: Patient Assessed, Agree with Above Assessment and Plan Critical Care: No
[2023-10-05] MEDS ORDERED: INFLUENZA VACCINE (for 6+ mo) 0.5 ML DOSE IMVAC ONE (16:00)
[2023-10-05] MEDS: FUROSEMIDE 40 MG/4 ML VIAL IV SCH (16:06)
[2023-10-05] MEDS: ENOXAPARIN 40 MG/0.4 ML SQ SCH (16:10)
[2023-10-05] MEDS: SPIRONOLACTONE 25 MG TABLET PO SCH (16:11)
[2023-10-05] MEDS: ASPIRIN 81 MG CHEWABLE TABLET PO SCH (16:11)
[2023-10-05] MEDS ORDERED: HOME MED 1 EA UNK (Lisinopril [Zestril] 2.5 MG Tablet) PO SCH (17:00)
[2023-10-05 19:20] LABS: Magnesium 1.7 mg/dL (1.6-2.4); Phosphorus 2.9 mg/dL (2.5-4.9); Thyroid Stimulating Hormone 2.07 uIU/mL (0.358-3.740)
[2023-10-05 19:32] LABS: Troponin High Sensitivity 86.6 pg/mL (<58.9)
[2023-10-05] MEDS: carvediloL 6.25 MG TAB PO SCH (19:59)
[2023-10-05] MEDS: ATORVASTATIN 40 MG TAB PO SCH (19:59)
[2023-10-06 07:23] LABS: Absolute Lymphocytes (CBC) 2.2 K/uL (0.7-4.9); Hematocrit 39.9 % (39.6-49.0); Lymphocytes % 39.8 % (15.3-44.8); MCV 86.5 fL (80-100); Platelets 173 thou/uL (152-406); RBC Red Blood Cell Count 4.61 M/uL (4.33-5.43)
[2023-10-06 07:42] LABS: Potassium 3.5 mEq/L (3.5-5.1)
[2023-10-06] MEDS: FUROSEMIDE 40 MG/4 ML VIAL IV SCH ×2 (09:09→16:38)
[2023-10-06] MEDS: ASPIRIN 81 MG CHEWABLE TABLET PO SCH (09:09)
[2023-10-06] MEDS: lisinopriL 5 MG TAB PO SCH (09:09)
[2023-10-06] MEDS: ENOXAPARIN 40 MG/0.4 ML SQ SCH (09:10)
[2023-10-06] MEDS: SPIRONOLACTONE 25 MG TABLET PO SCH (09:10)
[2023-10-06] MEDS: carvediloL 6.25 MG TAB PO SCH ×2 (09:10→20:33)
[2023-10-06] MEDS ORDERED: POTASSIUM 25 MEQ EFFERV TAB PO ONE (10:51)
[2023-10-06] MEDS ORDERED: MAGNES/ALUMIN/SIMET 30ML UCUP PO PRN (13:56)
[2023-10-06 14:54] VITALS: BMI 21.6
--- NOTE | 2023-10-06 15:27 | P.PN ---
Subjective Date of Service: 10/06/23 Chief Complaint: SOB Subjective: Improving Patient seen at bedside. Reports improvement in shortness of breath. Continue supportive care. Review of Systems General: Unremarkable Eyes: Unremarkable ENT: Unremarkable Respiratory: Shortness of Breath Cardiovascular: Unremarkable Gastrointestinal: Unremarkable Genitourinary: Unremarkable Musculoskeletal: Unremarkable Integumentary: Unremarkable Neurological: Unremarkable Lymphatics: Unremarkable Physical Examination - Vital Signs Temperature: 99.0 F Blood Pressure: 103/72 Pulse: 87 Respirations: 16 Pulse Ox (%): 98 - Physical Exam General: Alert, In no apparent distress, Oriented x3, Cooperative HEENT: Atraumatic, PERRLA, EOMI Neck: Supple, JVD not distended Respiratory: Normal air movement, Diminished Cardiovascular: No edema, Regular rate/rhythm, Normal S1 S2 Capillary refill: <2 Seconds Gastrointestinal: Normal bowel sounds, No tenderness Musculoskeletal: No clubbing, No tenderness Integumentary: No rashes Neurological: Normal speech, Normal tone, Normal affect Lymphatics: No axilla or inguinal lymphadenopathy - Studies Microbiology Data (last 24 hrs): 10/05/23 08:48 Nasopharnyx Influenza Type A Antigen Screen - Final 10/05/23 08:48 Nasopharnyx Influenza Type B Antigen Screen - Final Assessment And Plan - Plan Interval Hx 10/06/23 Patient reports improvement in shortness of breath. Patient with good diuresis with Lasix. Patient being weaned off O2 therapy. Awaiting recommendation from choir accompanist. Continue current treatment regimen. Continue supportive care. --Acute on chronic systolic CHF exacerbation. CT chest PE protocol indicates Small bilateral pleural effusions larger on the right with mild central interstitial prominence. BNP--66912 Patient placed on diuresis with Lasix. Daily weight and strict I/O. Cardiology consulted. We will await further recommendations. -- Elevated D-dimer. CT chest PE protocol negative for PE. Continue supportive care. --Hypertension. Poorly controlled. Continue home medications and labetalol as needed. --Hyperlipidemia. Continue statin --History of CT. Continue aspirin and statin. -- Nicotine dependence. Patient counseled on tobacco cessation. Refuses nicotine patch. --Headache. Tylenol as needed. --Nausea and vomiting. Antiemetics on board. Continue supportive care. -- Back pain. We will manage pain with current pain medication regimen. --Hypomagnesemia. Replete as needed. --Medication noncompliance. Social service consulted for help with medications. --DVT prophylaxis with Lovenox subQ Discharge Plan: Home Plan to discharge in: 48 Hours Physician Review: Patient Assessed, Agree with Above Assessment and Plan Critical Care: No
[2023-10-06] MEDS: ATORVASTATIN 40 MG TAB PO SCH (20:33)
[2023-10-07] MEDS: SPIRONOLACTONE 25 MG TABLET PO SCH (08:52)
[2023-10-07] MEDS: ASPIRIN 81 MG CHEWABLE TABLET PO SCH (08:52)
[2023-10-07] MEDS: carvediloL 6.25 MG TAB PO SCH (08:52)
[2023-10-07] MEDS: ENOXAPARIN 40 MG/0.4 ML SQ SCH (08:52)
[2023-10-07] MEDS: FUROSEMIDE 40 MG/4 ML VIAL IV SCH ×2 (08:53→17:00)
[2023-10-07] MEDS: lisinopriL 5 MG TAB PO SCH (08:53)
[2023-10-07 09:21] LABS: Absolute Lymphocytes (CBC) 1.6 K/uL (0.7-4.9); Hematocrit 41.6 % (39.6-49.0); Lymphocytes % 25.7 % (15.3-44.8); MCV 85.5 fL (80-100); Platelets 182 thou/uL (152-406); RBC Red Blood Cell Count 4.86 M/uL (4.33-5.43)
[2023-10-07 09:30] VITALS: O2SAT 98
[2023-10-07 09:33] LABS: Potassium 3.8 mEq/L (3.5-5.1)
--- NOTE | 2023-10-07 15:24 | P.PN ---
Subjective Date of Service: 10/07/23 Chief Complaint: SOB Patient seen at bedside. Reports improvement in shortness of breath. Continue supportive care. Physical Examination - Vital Signs Temperature: 97.6 F Blood Pressure: 142/80 Pulse: 73 Respirations: 16 Pulse Ox (%): 95 Assessment And Plan - Plan Interval Hx 10/06/23 Patient reports improvement in shortness of breath. Patient with good diuresis with Lasix. Patient being weaned off O2 therapy. Awaiting recommendation from family law mediator. Continue current treatment regimen. Continue supportive care. --Acute on chronic systolic CHF exacerbation. CT chest PE protocol indicates Small bilateral pleural effusions larger on the right with mild central interstitial prominence. BNP--78428 Patient placed on diuresis with Lasix. Daily weight and strict I/O. Cardiology consulted. We will await further recommendations. -- Elevated D-dimer. CT chest PE protocol negative for PE. Continue supportive care. --Hypertension. Poorly controlled. Continue home medications and labetalol as needed. --Hyperlipidemia. Continue statin --History of [place]. Continue aspirin and statin. -- Nicotine dependence. Patient counseled on tobacco cessation. Refuses nicotine patch. --Headache. Tylenol as needed. --Nausea and vomiting. Antiemetics on board. Continue supportive care. -- Back pain. We will manage pain with current pain medication regimen. --Hypomagnesemia. Replete as needed. --Medication noncompliance. Social service consulted for help with medications. --DVT prophylaxis with Lovenox subQ Physician Review: Patient Assessed, Agree with Above Assessment and Plan
[2023-10-07 16:35] VITALS: BP 110/81; TEMP 96.8
--- NOTE | 2023-10-07 18:07 | P.DS ---
Admission Date: 10/05/23 Discharge Date: 10/07/23 Disposition: ROUTINE DISCHARGE Reason for Admission: SOB Brief History of Present Illness: Patient is a 62-year-old male with a past medical history significant for hypertension, [place], CHF, hyperlipidemia, nicotine dependence who presents with complaint of shortness of breath that has been ongoing for the past 3 days. Patient reported that he initially started coughing 1 week ago. Patient reported that this morning he started experiencing intractable nausea and vomiting. Patient also reports low back pain rated as 8/10 in severity and described as sharp in quality. Patient reported associated signs and symptoms of headache, dizziness, chills, diaphoresis, fatigue and generalized weakness. Patient denies any other signs and symptoms. Symptoms are aggravated or relieved by nothing. Patient decided to present to the hospital due to worsening symptoms. Of note, patient has not been compliant with his home medications due to financial constraints. Vital Signs/Physical Exam: Temp Pulse Resp BP Pulse Ox 96.8 F 82 16 110/81 98 10/07/23 16:00 10/07/23 16:00 10/07/23 16:00 10/07/23 17:00 10/07/23 16:00 Laboratory Data at Discharge: WBC 6.10 thou/uL (4.3-10.9) 10/07/23 08:35 Hgb 14.0 g/dL (13.6-17.9) 10/07/23 08:35 Hct 41.6 % (39.6-49.0) 10/07/23 08:35 Plt Count 182 thou/uL (152-406) 10/07/23 08:35 PT 13.6 SECONDS (9.5-12.5) H 10/05/23 08:49 INR 1.24 10/05/23 08:49 APTT 33.4 SECONDS (24.3-36.9) 10/05/23 08:49 Sodium 140 mEq/L (136-145) 10/07/23 08:35 Potassium 3.8 mEq/L (3.5-5.1) 10/07/23 08:35 BUN 16 mg/dL (7-18) 10/07/23 08:35 Creatinine 0.87 mg/dL (0.70-1.30) 10/07/23 08:35 Glucose 96 mg/dL (74-106) 10/07/23 08:35 Phosphorus 2.9 mg/dL (2.5-4.9) 10/05/23 18:41 Magnesium 1.7 mg/dL (1.6-2.4) 10/05/23 18:41 Total Bilirubin 0.7 mg/dL (0.2-1.0) 10/05/23 08:49 AST 38 U/L (15-37) H 10/05/23 08:49 ALT 31 U/L (16-61) 10/05/23 08:49 Alkaline Phosphatase 82 U/L (45-117) 10/05/23 08:49 Triglycerides 96 mg/dL (<150) 10/06/23 06:16 Cholesterol 90 mg/dL (<200) 10/06/23 06:16 HDL Cholesterol 32 mg/dL (40-60) L 10/06/23 06:16 Cholesterol/HDL Ratio 2.81 10/06/23 06:16 Lipase 34 U/L (13-75) 10/05/23 08:49 Home Medications: Aspirin Chewable [Aspirin Chewable*] 81 mg PO DAILY #30 tab.chew 09/20/23 Aspirin Chewable [Aspirin Chewable*] 81 mg PO DAILY 30 Days #30 tab.chew 10/07/23 Atorvastatin Calcium [Lipitor] 40 mg PO BEDTIME 30 Days #30 tab 10/07/23 Furosemide [Lasix*] 40 mg PO DAILY 30 Days #30 tab 10/07/23 Lisinopril [Zestril] 2.5 mg PO DAILY 30 Days #30 10/07/23 Spironolactone 25 mg PO DAILY 30 Days #30 10/07/23 carvediloL [Carvedilol] 6.25 mg PO BID 30 Days #30 10/07/23 New Medications: Aspirin Chewable [Aspirin Chewable*] 81 mg PO DAILY 30 Days #30 tab.chew carvediloL [Carvedilol] 6.25 mg PO BID 30 Days #30 Furosemide [Lasix*] 40 mg PO DAILY 30 Days #30 tab Atorvastatin Calcium [Lipitor] 40 mg PO BEDTIME 30 Days #30 tab Spironolactone 25 mg PO DAILY 30 Days #30 Lisinopril [Zestril] 2.5 mg PO DAILY 30 Days #30 Diet: HH Followup: NONE,NONE [Primary Care Provider] - Erik Sandoval MD [ACTIVE - CAN ADMIT] - 1-2 Weeks
--- NOTE | 2023-10-10 17:01 | EKG ---
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 RESULTS: Intervals: Rate: 100 MT: 192 QRSD: 100 QT: 374 QTc: 482 [place]: P: 79 MT: 192 QRS: 86 T: 99 INTERPRETIVE STATEMENTS: Sinus rhythm with occasional premature ventricular complexes and premature atrial complexes Left ventricular hypertrophy with repolarization abnormality Prolonged QT Abnormal ECG Compared to ECG 09/16/2023 12:30:13 Ventricular premature complex(es) now present Prolonged QT interval now present Sinus tachycardia no longer present Aberrant conduction of supraventricular beat(s) no longer present Myocardial infarct finding no longer present Electronically Signed On 10-10-23 16:54:34 [employer] FILLER by Erik Sandoval
== END 2023-10-07 18:39 | disposition home or self-care (01) | DRG 291 ==
LOC: ER 08:07 → ERHOLD 12:38 → 4TH 14:02
PROVIDERS: ADMIT Internal Medicine Nephrology; ATTEND Internal Medicine Nephrology
DX: I11.0 Hypertensive heart disease with heart failure (principal); I50.23 Acute on chronic systolic (congestive) heart failure; E78.5 Hyperlipidemia, unspecified; E83.42 Hypomagnesemia; F17.210 Nicotine dependence, cigarettes, uncomplicated; I25.2 Old myocardial infarction; Z23 Encounter for immunization; Z71.6 Tobacco abuse counseling; Z11.52 Encounter for screening for COVID-19; Z79.02 Long term (current) use of antithrombotics/antiplatelets; Z79.82 Long term (current) use of aspirin; Z79.899 Other long term (current) drug therapy; Z91.141 Patient's other noncompliance with medication regimen due to financial hardship
CPT/HCPCS: 36415; 71045; 71275; 80048; 80061; 80076; 82550; 83605; 83690; 83735; 83880; 84100; 84439; 84443; 84484; 85025; 85379; 85610; 85730; 87040; 87804; 87811; 90471; 93005; 94640; 96365; 99285; J1650; J1940; J2405; J3475; J7613; J7644; Q2035; Q9967

== ENCOUNTER 2024-10-21 22:48 | Inpatient (IN) | payer SELFPAY ==
--- OUTSIDE RECORDS SUMMARY | 2024-10-21 22:50 | XMS REPORT | Continuity of Care Document ---
Author Name Unknown Address [address] [place] [address] [facility] thconnect Address 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 Role Phone PANCHO Menjivar [facility], [facility] Care Physician Unavailable Dianne Christina RN Attending Clinician AKBAR ROSAS Attending Clinician Unavailable AKBAR ROSAS Admitting Clinician Unavailable Payers Payer Name Policy Type Policy Number Effective Date Expirati on Date Source Problems Condition Name Condition Details Condition Category Status Onset Date Resolution Date Last Treatment Date Treating Clinician Comments Source Acute right-side d CHF (congestiv e heart failure) Acute right-side d CHF (congestiv e heart failure) Disease Active 5-17 00:00: 00 [facility] LBBB (left bundle branch block) LBBB (left bundle branch block) Disease Active 08-13 00:00: 00 [facility] Troponin I above reference range Troponin I above reference range Disease Active 08-13 00:00: 00 [facility] Essential hypertensi on Essential hypertensi on Disease Active 08-13 00:00: 00 [facility] 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 Disease Active 08-13 00:00: 00 [facility] New onset of congestive heart failure New onset of congestive heart failure Disease Active 08-12 00:00: 00 [facility] Allergies, Adverse Reactions, Alerts Allergy Name Allergy Type Status Severity Reaction(s) Onset Date Inactive Date Treating Clinician Comments Source NO KNOWN ALLERGIE S Drug Class Active [facility] Social History Social Habit Start Date Stop Date Quantity Comments Source History SDOH Alcohol Comment [facility] Alcohol intake 2021-03-30 00:00:00 2021-03-30 00:00:00 Current drinker of alcohol (finding) [facility] History SDOH Alcohol Frequency 2020-08-14 00:00:00 2020-08-14 00:00:00 5 [facility] History SDOH Alcohol Std Drinks 2020-08-14 00:00:00 2020-08-14 00:00:00 3 [facility] History SDOH Alcohol Binge 2020-08-14 00:00:00 2020-08-14 00:00:00 99 [facility] Cigarettes smoked current (pack per day) - Reported 2020-08-12 00:00:00 2020-08-12 00:00:00 [facility] Cigarette pack-years 2020-08-12 00:00:00 2020-08-12 00:00:00 [facility] Tobacco use and exposure 2020-08-12 00:00:00 2020-08-12 00:00:00 Never used [facility] Sex Assigned At 1960 00:00:00 1960 00:00:00 [facility] Smoking Status Start Date Stop Date Source Current every day smoker 2020-08-12 00:00:00 [facility] Medications Ordered Medication Name Filled Medication Name Start Date Stop Date Current Medication? Ordering Clinician Indication Dosage Frequency Signature (SIG) Comments Components Source furosemide 40 mg tablet 03-31 00:00: 00 Yes [id number] 40mg Take 1 tablet by mouth daily. [facility] lisinopriL 2.5 mg tablet 03-31 00:00: 00 Yes [id number] 2.5mg Take 1 tablet by mouth daily. [facility] metoprolol tartrate 50 mg tablet 03-31 00:00: 00 Yes [id number] 50mg Take 1 tablet by mouth 2 (two) times daily. [facility] atorvastati n 40 mg tablet 03-31 00:00: 00 Yes [id number] 40mg Take 1 tablet by mouth at bedtime. [facility] aspirin 81 mg chewable tablet 03-31 00:00: 00 Yes [id number] 81mg Take 1 tablet by mouth daily. [facility] Encounters Start Date/Time End Date/Time Encounter Type Admission Type Attending [facility] Care Facility Care Department Encounter ID Source 2023-10-25 14:30:05 2023-10-25 14:30:05 Outpatient [facility] [id number] Pancho Torres 2023-01-05 15:13:30 2023-01-05 15:13:30 Outpatient [facility] [id number] Pancho Torres 2021-08-17 00:00:00 2021-08-17 00:00:00 Patient Outreach Dianne Christina [id number] [facility] 2021-03-30 11:44:00 2021-03-31 18:57:00 Outpatient X AKBAR ROSAS [facility] KRISTOPHER [id number] [facility] 2020-08-12 10:05:00 2020-08-12 10:05:00 Emergency X [facility] ERT [id number] [facility] Results Test Description Test Time Test Comments Results Result Co mments Source COMPREHENSIVE METABOLIC [id number] 03:57:49* Test Item Value Reference Range Interpretation Comme nts GLUCOSE (test code = 2217) 94 MG/DL 70-99 BUN (test code = 2208) 17 MG/DL 8-23 CREATININE (test code = 2214) 1.03 MG/DL 0.80-1.40 eGFR (2020 CKD-EPI) (test code = 76307) 83 ML/MIN/1.73 >60 CALC BUN/CREAT (test code = 2235) 17 RATIO 6-28 SODIUM (test code = 2231) 144 MEQ/L 133-146 POTASSIUM (test code = 2228) 3.9 MEQ/L 3.5-5.4 CHLORIDE (test code = 2215) 105 MEQ/L 95-107 CARBON DIOXIDE (test code = 2206) 26 MEQ/L 19-31 CALCIUM (test code = 2209) 9.6 MG/DL 8.5-10.5 PROTEIN, TOTAL (test code = 2229) 8.7 G/DL 6.1-8.3 H ALBUMIN (test code = 2201) 4.4 G/DL 3.5-5.2 CALC GLOBULIN (test code = 2240) 4.3 G/DL 1.9-3.7 H CALC A/G RATIO (test code = 2234) 1.0 RATIO 1.0-2.6 BILIRUBIN, TOTAL (test code = 2207) 0.5 MG/DL See_Comment [Automated me ssage] The system which generated this result transmitted reference range: <=1.2. The reference range was not used to interpret this result as normal/abnormal. ALKALINE PHOSPHATASE (test code = 4) 100 U/L 40-123 AST (test code = 2218) 85 U/L 9-50 H ALT (test code = 2219) 54 U/L 5-50 H UNLESS OTHERWISE INDICATED, ALL TESTING PERFORMED [facility] [employer] [address] [place] [address] MOBILE WEB APPLICATION DEVELOPER: ZEKE STERN M.D. CLIA NUMBER [id number] [facility] [place]. [id number] LIPID [id number] 04:02:34* Test Item Value Reference Range Interpretation Comme nts CHOLESTEROL (test code = 2210) 122 MG/DL <200 TRIGLYCERIDES (test code = 2232) 122 MG/DL <150 HDL CHOLESTEROL (test code = 2220) 34 MG/DL >39 L CALC LDL CHOL (test code = 2237) 68 MG/DL <100 NOTE: CALCULATED LDL IS BASED ON ANGELA-SHEA METHOD WHICHINCLUDES ADJUSTABLE TRIGLYCERIDE:VLDL CHOLESTEROL RATIO.THIS FACTOR VARIES BY MEASURED TRIGLYCERIDE AND NON-HDLCHOLESTEROL CONCENTRATIONS WITH INCREASED CALCULATED LDL SEENIN HIGHER TRIGLYCERIDE OR LOWER NON-HDL SPECIMENS. FOR MOREINFORMATION, SEE CLIENT ANNOUNCEMENT AT [email or web address] RISK RATIO LDL/HDL (test code = 2238) 2.00 RATIO <3.55 COMPREHENSIVE METABOLIC [id number] 04:02:34* Test Item Value Reference Range Interpretation Comme nts GLUCOSE (test code = 2217) 92 MG/DL 70-99 BUN (test code = 2207) 12 MG/DL 8-23 CREATININE (test code = 2213) 1.28 MG/DL 0.80-1.40 eGFR (2020 CKD-EPI) (test code = ) 64 ML/MIN/1.73 >60 CALC BUN/CREAT (test code = 2234) 9 RATIO 6-28 SODIUM (test code = 2230) 145 MEQ/L 133-146 POTASSIUM (test code = 2227) 4.2 MEQ/L 3.5-5.4 CHLORIDE (test code = 2214) 109 MEQ/L 95-107 H CARBON DIOXIDE (test code = 2205) 22 MEQ/L 19-31 CALCIUM (test code = 2208) 9.5 MG/DL 8.5-10.5 PROTEIN, TOTAL (test code = 2228) 8.1 G/DL 6.1-8.3 ALBUMIN (test code = 2200) 4.0 G/DL 3.5-5.2 CALC GLOBULIN (test code = 2239) 4.1 G/DL 1.9-3.7 H CALC A/G RATIO (test code = 2233) 1.0 RATIO 1.0-2.6 BILIRUBIN, TOTAL (test code = 2206) 0.7 MG/DL See_Comment [Automated me ssage] The system which generated this result transmitted reference range: <=1.2. The reference range was not used to interpret this result as normal/abnormal. ALKALINE PHOSPHATASE (test code = 2203) 103 U/L 40-123 AST (test code = 2217) 45 U/L 9-50 ALT (test code = 9) 29 U/L 5-50 UNLESS OTHERWISE INDICATED, ALL TESTING PERFORMED [facility] [address] [place] [address] MOBILE WEB APPLICATION DEVELOPER: ZEKE STERN M.D. CLIA NUMBER [id number] [facility]. [id number]
[2024-10-22 00:04] LABS: Absolute Lymphocytes (CBC) 1.6 K/uL (0.7-4.9); Absolute Monocytes 0.7 K/uL (0.1-1.3); Absolute Neutrophil 2.7 K/uL (1.8-8.0); Basophils % 0.6 % (0-1.3); Eosinophils % 0.6 % (0-4.4); Hematocrit 38.1 % (39.6-49.0); Hemoglobin 12.2 g/dL (13.6-17.9); Lymphocytes % 31.5 % (15.3-44.8); MCH 26.3 pg (27.0-35.0); MCV 82.1 fL (80-100); MPV 9.9 fL (7.6-11.3); Monocytes % 13.2 % (3.3-12.3); Neutrophils % 54.1 % (41.7-73.7); Nucleated Red Blood Cells % 0.2 % (0-0); Platelets 168 thou/uL (152-406); RBC Red Blood Cell Count 4.64 M/uL (4.33-5.43); Red Cell Distribution Width 16.9 % (12.1-15.2)
[2024-10-22 00:16] LABS: Anion Gap 9.7 mEq/L (5.0-15.0); Potassium 3.7 mEq/L (3.5-5.1)
--- NOTE | 2024-10-22 00:53 | RAD REPORT ---
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 COMPARISON: XR Chest 08/03/2024. FINDINGS: 1 view of the chest (AP portable projection) was obtained. No prior films are available at this dulce e for comparison. There is normal lung volume. Mediastinum: The cardiomediastinal silhouette appears normal in size and shape. Lungs: No areas of consolidations or masses are identified. Heart: The heart is prominent. Thoracic aorta: The thoracic aorta demonstrate to be normal. Pulmonary vasculature: The pulmonary vasculature is normal in distribution. Pleura: The costophrenic angles demonstrate to be sharp. Osseous structures: The bony structures demonstrate to be within normal limits. Other: None. IMPRESSION: Mild cardiomegaly. No focal areas of acute airspace disease. Electronically signed by: James Rodgers MD 10/22/2024 12:46 AM TELEGRAPH REPEATER MECHANIC Due to temporary technical issues with the PACS/[employer] reporting system, reports are being valerio d by the in-house radiologist without review as a courtesy to ensure prompt reporting the interpreting radiologist is fully responsible for the content of the report. Transcribed Date/Time: 10/22/2024 12:53 AM
[2024-10-22] MEDS ORDERED: FUROSEMIDE 40 MG/4 ML VIAL ONE ×2 (01:21→07:55)
[2024-10-22 01:52] LABS: PT Prothrombin Time 16.7 SECONDS (9.4-12.5); PTT, Activated Partial Thromb 31.3 SECONDS (24.3-36.9); Protime INR 1.51
--- NOTE | 2024-10-22 03:32 | ER ---
Nurse's Notes [facility] Name: Milan Machuca Age: 64 yrs Sex: Male : 1960 Arrival Date: 10/21/2024 Time: 22:48 Bed 17 Private MD: Diagnosis: Heart failure, unspecified Presentation: 10/21 23:14 Chief complaint: EMS states: patient complaints of shortness of breath and cough for rg5 almost a week now. Coronavirus screen: Client denies travel out of the [place] in the last 14 days. Ebola Screen: Patient negative for fever greater than or equal to 101.5 degrees Fahrenheit, and additional compatible Ebola Virus Disease symptoms. Initial Sepsis Screen: Does the patient meet any 2 criteria? No. Patient's initial sepsis screen is negative. Does the patient have a suspected source of infection? No. Patient's initial sepsis screen is negative. Risk Assessment: Do you want to hurt yourself or someone else? Patient reports no desire to harm self or others. Onset of symptoms was October 21, 2024. 23:14 Method Of Arrival: EMS: [place] [id number] 23:14 Acuity: AVELINO 3 rg5 Triage Assessment: 23:26 General: Appears in no apparent distress. comfortable, Behavior is calm, cooperative. rg5 Pain: Denies pain. EENT: No deficits noted. Neuro: Level of Consciousness is awake, alert, obeys commands, Oriented to person, place, time, situation. Cardiovascular: Denies chest pain, Patient's skin is warm and dry. Respiratory: Reports shortness of breath cough that is dry, Onset: The symptoms/episode began/occurred 1 wk, the patient has mild shortness of breath. GI: Abdomen is flat, Abd is soft and non tender Reports constipation. : No signs and/or symptoms were reported regarding the genitourinary system. Derm: Skin is intact, Skin is dry, Skin is normal, Skin temperature is warm. Musculoskeletal: Circulation, motion, and sensation intact. Range of motion: intact in all extremities. Historical: - Allergies: 23:26 No Known Allergies; rg5 - Home Meds: 23:30 lisinopril 2.5 mg Oral tablet 1 tab daily [Active]; atorvastatin 40 mg Oral tablet 1 rg5 tab every day at bedtime [Active]; carvedilol 6.25 mg Oral tablet 1 tab 2 times per day [Active]; spironolactone 25 mg Oral tablet 1 tab daily [Active]; aspirin 81 mg Oral tablet 1 tab daily [Active]; - PMHx: 23:30 CHF; Hypertensive disorder; Myocardial infarction; rg5 - Immunization history:: Adult Immunizations up to date. - Infectious Disease History:: Denies. - Social history:: Smoking status: Patient reports the use of cigarette tobacco products, Patient/guardian denies using tobacco, Stopped _ months ago 1. Screenin:29 [facility] ED Fall Risk Assessment (Adult) History of falling in the last 3 months, rg5 including since admission No falls in past 3 months (0 pts) Confusion or Disorientation No (0 pts) Intoxicated or Sedated No (0 pts) Impaired Gait No (0 pts) Mobility Assist Device Used No (0 pt) Altered Elimination No (0 pt) Score/Fall Risk Level 0 - 2 = Low Risk Oriented to surroundings, Maintained a safe environment, Hourly rounding (assess needs \T\ fall precautionary measures) done. Abuse screen: Denies threats or abuse. Nutritional screening: No deficits noted. Tuberculosis screening: No symptoms or risk factors identified. Assessment: 23:29 Reassessment: see triage assessment. rg5 23:30 Respiratory: Airway is patent Respiratory effort is even, unlabored, Breath sounds are rg5 coarse. 23:30 Cardiovascular: Denies chest pain, Rhythm is sinus rhythm. rg5 12/ 00:15 Reassessment: Patient and/or family updated on plan of care and expected duration. Pain rg5 level reassessed. Patient is alert, oriented x 3, equal unlabored respirations, skin warm/dry/pink. 01:01 Reassessment: Patient and/or family updated on plan of care and expected duration. Pain rg5 level reassessed. Patient is alert, oriented x 3, equal unlabored respirations, skin warm/dry/pink. 02:30 Reassessment: Patient and/or family updated on plan of care and expected duration. Pain rg5 level reassessed. Patient is alert, oriented x 3, equal unlabored respirations, skin warm/dry/pink. 03:41 Reassessment: Patient and/or family updated on plan of care and expected duration. Pain rg5 level reassessed. Patient is alert, oriented x 3, equal unlabored respirations, skin warm/dry/pink. Vital Signs: 10/21 23:14 BP 134 / 97; Pulse 79; Resp 18; Temp 98.2; Pulse Ox 99% on R/A; Weight 70.31 kg; Height rg5 5 ft. 11 in. ; 10/22 00:16 BP 114 / 86; Pulse 77; Resp 18; Pulse Ox 96% on R/A; Pain 0/10; rg5 01:00 BP 101 / 78; Pulse 75; Resp 18; Pulse Ox 98% on R/A; Pain 0/10; rg5 02:22 BP 143 / 85; Pulse 77; Resp 18; Pulse Ox 98% on R/A; Pain 0/10; rg5 03:42 BP 128 / 92; Pulse 78; Resp 17; Pulse Ox 99% on R/A; Pain 0/10; rg5 10/21 23:14 Body Mass Index 21.62 (70.31 kg, 180.34 cm) rg5 10/22 00:16 Pain Scale: Adult rg5 01:00 Pain Scale: Adult rg5 02:22 Pain Scale: Adult rg5 03:42 Pain Scale: Adult rg5 ED Course: 10/21 23:12 Patient arrived in ED. jj6 23:13 Adeel Campos, RN is Primary Nurse. rg5 23:26 Triage completed. rg5 23:26 Arm band placed on. rg5 23:27 Arturo Quintero MD is Attending Physician. ec2 23:29 Patient has correct armband on for positive identification. Bed in low position. Call rg5 light in reach. Side rails up X 1. Door closed. Noise minimized. Warm blanket given. 23:29 No provider procedures requiring assistance completed. rg5 23:30 Inserted saline lock: 20 gauge in right antecubital area, using aseptic technique. rg5 Blood collected. Flushed with 10 mL NS. 10/22 00:04 XRAY Chest (1 view) In Process Unspecified. EDMS 03:31 Leo Siu MD is Hospitalizing Provider. ec2 03:50 Provided Education on: need for admit. rg5 03:50 Patient admitted, IV remains in place. rg5 06:37 Arturo Quintero MD is Attending Physician. ec2 Administered Medications: 01:25 Drug: Furosemide IVP 40 mg IVP once; give over 2 minutes Route: IVP; Site: right rg5 antecubital; 03:02 Follow up: Response: No adverse reaction rg5 03:40 Drug: Aspirin PO Chewable Tablet 324 mg PO once; 81 mg tablets x 4 Route: PO; rg5 04:32 Follow up: Response: No adverse reaction rg5 Medication: 10/21 23:29 VIS not applicable for this client. rg5 Outcome: 10/22 03:32 Decision to Hospitalize by Provider. ec2 03:50 Admitted to ER Hold. Please see [facility] for further documentation. rg5 03:50 Condition: stable 03:50 Instructed on the need for admit, 16:51 Patient left the ED. jb4 Signatures: Dispatcher [employer] Chad Howard, RN RN jb4 Dariana Colvinj6 Arturo Quintero MD MD ec2 Adeel Campos RN RN rg5
--- NOTE | 2024-10-22 03:32 | EDPHYS ---
Physician Documentation [facility] Name: Milan Machuca Age: 64 yrs Sex: Male : 1960 Arrival Date: 10/21/2024 Time: 22:48 Bed 17 Private MD: ED Physician Arturo Quintero HPI: 10/22 03:30 This 64 yrs old Black Male presents to ER via EMS with complaints of Shortness Of ec2 Breath. 03:30 Patient arrives today for shortness of breath and orthopnea. Patient been having ec2 progressive shortness of breath. History of CHF, has not been on diuretic for some time. No fevers or chills, does have a frequent cough and difficulty laying flat.. Historical: - Allergies: 10/21 23:26 No Known Allergies; rg5 - Home Meds: 23:30 lisinopril 2.5 mg Oral tablet 1 tab daily [Active]; atorvastatin 40 mg Oral tablet 1 rg5 tab every day at bedtime [Active]; carvedilol 6.25 mg Oral tablet 1 tab 2 times per day [Active]; spironolactone 25 mg Oral tablet 1 tab daily [Active]; aspirin 81 mg Oral tablet 1 tab daily [Active]; - PMHx: 23:30 CHF; Hypertensive disorder; Myocardial infarction; rg5 - Immunization history:: Adult Immunizations up to date. - Infectious Disease History:: Denies. - Social history:: Smoking status: Patient reports the use of cigarette tobacco products, Patient/guardian denies using tobacco, Stopped _ months ago 1. ROS: 10/22 03:30 Constitutional: as per hpi ec2 Exam: 03:30 Constitutional: GEN: NAD Head: atraumatic Eyes: EOMI Ears: External ears are ec2 normal. CV: regular rate, trace lower extremity edema. LUNGS: no respiratory distress, crackles noted throughout the lower lung rincon. ABD: non-distended SKIN: no evidence of rashes MSK: no evidence of trauma Vital Signs: 10/21 23:14 BP 134 / 97; Pulse 79; Resp 18; Temp 98.2; Pulse Ox 99% on R/A; Weight 70.31 kg; Height rg5 5 ft. 11 in. ; 10/22 00:16 BP 114 / 86; Pulse 77; Resp 18; Pulse Ox 96% on R/A; Pain 0/10; 5 01:00 BP 101 / 78; Pulse 75; Resp 18; Pulse Ox 98% on R/A; Pain 0/10; [facility] 02:22 BP 143 / 85; Pulse 77; Resp 18; Pulse Ox 98% on R/A; Pain 0/10; [facility] 03:42 BP 128 / 92; Pulse 78; Resp 17; Pulse Ox 99% on R/A; Pain 0/10; [facility] 10/21 23:14 Body Mass Index 21.62 (70.31 kg, 180.34 cm) [facility] 10/22 00:16 Pain Scale: Adult [facility] 01:00 Pain Scale: Adult [facility] 02:22 Pain Scale: Adult [facility] 03:42 Pain Scale: Adult [facility] MDM: 10/21 23:34 Medical Screening Exam initiated ec2 23:52 ED course: EKG independently reviewed and interpreted by me, shows normal sinus rhythm, ec2 rate of 83, no acute ST segment elevations, left bundle branch block noted. Intervals are nonactionable.. 10/22 03:30 Data reviewed: vital signs, nurses notes. ED course: Patient arrives today for ec2 shortness of breath. Presentation consistent with volume overload. Lab work indicates necessity for chest x-ray. Lasix with some urine output, will admit for diuresis, troponinemia, will give full dose aspirin as well. Discussed with hospitalist, pending admission.. 10/21 23:26 Order name: Basic Metabolic Panel; Complete Time: 01:20 ec2 10/21 23:26 Order name: CBC with Diff; Complete Time: 01:20 ec2 10/21 23:26 Order name: NT PRO-BNP; Complete Time: 01:20 ec2 10/21 23:26 Order name: Troponin HS; Complete Time: 01:20 ec2 10/22 01:20 Order name: PT-INR; Complete Time: 02:35 ec2 10/22 01:20 Order name: Ptt, Activated; Complete Time: 02:35 ec2 10/22 05:33 Order name: Urinalysis w/ reflexes EDMS 10/22 05:33 Order name: CBC with Automated Diff EDMS 10/22 05:33 Order name: CBC with Automated Diff EDMS 10/22 05:33 Order name: Comprehensive Metabolic Panel EDMS 10/22 05:33 Order name: Comprehensive Metabolic Panel EDMS 10/22 05:33 Order name: Troponin High Sensitivity EDMS 10/22 05:33 Order name: Troponin High Sensitivity EDMS 10/22 05:33 Order name: Troponin High Sensitivity EDMS 10/22 05:33 Order name: Troponin High Sensitivity EDMS 10/22 12:26 Order name: Phosphorus kc6 10/22 12:26 Order name: Magnesium kc6 10/22 12:48 Order name: Phosphorus EDMS 10/22 12:48 Order name: Magnesium EDMS 10/21 23:26 Order name: XRAY Chest (1 view) ec2 10/22 05:41 Order name: Echo with Doppler EDMS 10/21 23:26 Order name: EKG; Complete Time: 23:27 ec2 10/21 23:26 Order name: Cardiac monitoring; Complete Time: 23:39 ec2 10/21 23:26 Order name: EKG - Nurse/Tech; Complete Time: 23:52 ec2 10/21 23:26 Order name: IV Saline Lock; Complete Time: 23:39 ec2 10/21 23:26 Order name: Labs collected and sent; Complete Time: 23:39 ec2 10/21 23:26 Order name: O2 Per Protocol; Complete Time: 23:39 ec2 10/21 23:26 Order name: O2 Sat Monitoring; Complete Time: 23:39 ec2 Administered Medications: 01:25 Drug: Furosemide IVP 40 mg IVP once; give over 2 minutes Route: IVP; Site: right rg5 antecubital; 03:02 Follow up: Response: No adverse reaction rg5 03:40 Drug: Aspirin PO Chewable Tablet 324 mg PO once; 81 mg tablets x 4 Route: PO; rg5 04:32 Follow up: Response: No adverse reaction rg5 Disposition Summary: 10/22/24 03:32 Hospitalization Ordered Notes: Hospitalization Status: Inpatient Admission ec2 Provider: Leo Siu ec2 Condition: Stable ec2 Problem: an acute exacerbation ec2 Symptoms: have improved ec2 Bed/Room Type: Standard ec2 Location: Telemetry/MedSurg (Inpatient)(10/22/24 13:51) bd Room Assignment: 413(10/22/24 14:58) bd Diagnosis - Heart failure, unspecified ec2 Forms: - Medication Reconciliation Form ec2 - SBAR form ec2 - Leadership Thank You Letter ec2 Signatures: Dispatcher [employer] Jazmin Martinez Cindy, NEHEMIAS RN cg Arturo Quintero MD MD ec2 Adeel Campos, NEHEMIAS RN rg5 Corrections: (The following items were deleted from the chart) 04:16 03:32 Telemetry/MedSurg (Inpatient) ec2 cg 04:16 03:32 ec2 cg 13:51 04:16 [facility] ER HOLD cg bd 13:51 04:16 ERHOLD- cg bd 14:58 13:51 414 bd bd
[2024-10-22] MEDS ORDERED: ASPIRIN 81 MG CHEWABLE TABLET ONE ×2 (03:33→07:54)
--- NOTE | 2024-10-22 05:27 | P.HP ---
Certification for Inpatient Patient admitted to: Inpatient With expected LOS: >2 Midnights Practitioner: I am a practitioner with admitting privileges, knowledge of patient current condition, hospital course, and medical plan of care. Services: Services provided to patient in accordance with Admission requirements found in Title 42 Section 412.3 of the Code of Federal Regulations Patient History Date of Service: 10/22/24 Reason for admission: SOB History of Present Illness: 64 yrs old Male with past medical history of hypertension, hyperlipidemia, CHF, CAD with history of [place] was brought to ER with shortness of breath. Patient has been having progressive shortness of breath for the last 1-1/2 weeks and has been progressively getting worse. Denies any chest pain. No fever or chills. Does have frequent coughing difficulty in with laying flat consistent with orthopnea. Denies any chest pain. Denies Nausea vomiting or diarrhea. Denies any palpitation. No sick contacts. Patient was assessed in the ER and was admitted for for further management of CHF exacerbation. Allergies No Known Allergies Allergy (Unverified 09/16/23 13:37) Home medications list reviewed: Yes Home Medications: Aspirin Chewable [Aspirin Chewable*] 81 mg PO DAILY #30 tab.chew 09/20/23 Aspirin Chewable [Aspirin Chewable*] 81 mg PO DAILY 30 Days #30 tab.chew 10/07/23 Atorvastatin Calcium [Lipitor] 40 mg PO BEDTIME 30 Days #30 tab 10/07/23 Furosemide [Lasix*] 40 mg PO DAILY 30 Days #30 tab 10/07/23 Lisinopril [Zestril] 2.5 mg PO DAILY 30 Days #30 10/07/23 Spironolactone 25 mg PO DAILY 30 Days #30 10/07/23 carvediloL [Carvedilol] 6.25 mg PO BID 30 Days #30 10/07/23 - Past Medical/Surgical History Diabetic: No Past Medical History: Reviewed- Non-Contributory -: CHF -: [place] -: hypertension -: hyperlipidemia Past Surgical History: Reviewed- Non-Contributory - Family History Family History: Reviewed- Non-Contributory - Social History Smoking Status: Current every day smoker Alcohol use: Yes CD- Drugs: No Caffeine use: Yes Review of Systems 10-point ROS is otherwise unremarkable Physical Examination - Vital Signs Temperature: 97.2 F Blood Pressure: 138/72 Pulse: 78 Respirations: 18 Pulse Ox (%): 94 - Physical Exam General: Alert, Oriented x3, Mild distress HEENT: Atraumatic, Normocephalic Neck: Supple, No Thyromegaly Respiratory: Diminished, Crackles/rales Cardiovascular: Regular rate/rhythm, Normal S1 S2, Edema Capillary refill: <2 Seconds Gastrointestinal: Soft and benign, W/out hepatosplenomegaly Musculoskeletal: No clubbing Integumentary: No rashes, No breakdown Neurological: Normal speech, Normal strength at 5/5 x4 extr, Cranial nerves 3-12 intact Lymphatics: No axilla or inguinal lymphadenopathy - Studies Laboratory Data (last 24 hrs) 10/22/24 10/21/24 10/21/24 00:00 23:38 23:38 WBC 5.00 Hgb 12.2 L Hct 38.1 L Plt Count 168 PT 16.7 H INR 1.51 APTT 31.3 Sodium 139 Potassium 3.7 BUN 26 H Creatinine 1.26 Glucose 102 Assessment and Plan - Plan Acute on chronic CHF possibly systolic/diastolic Monitor closely on telemetry Started on aggressive diuresis X-ray findings consistent with CHF Oxygen supplementation Will try to wean down oxygen requirement Continue home medications Will obtain an echocardiogram Cardiology consult NSTEMI possibly type II Will trend cardiac enzymes Will monitor telemetry Started on aspirin and statin Patient denies any chest pain Cardiology consult Hypertension Antihypertensives titrated Continue home medications and titrate as needed Hyperlipidemia Continue statin Smoking Advise cessation GI/DVT prophylaxis Advanced directive full code Discharge Plan: Home Plan to discharge in: 48 Hours - Advance Directives Does patient have a Living Will: No Does patient have a Durable POA for Healthcare: No - Code Status/Comfort Care Code Status: Full Code Time Spent Managing Pts Care (In Minutes): 48
[2024-10-22] MEDS ORDERED: ACETAMINOPHEN 325 MG TABLET PO PRN (05:28)
[2024-10-22] MEDS ORDERED: ONDANSETRON 4 MG/2 ML VIAL IV PRN (05:28)
[2024-10-22] MEDS ORDERED: lisinopriL 5 MG TAB ONE (07:54)
[2024-10-22] MEDS ORDERED: ENOXAPARIN 40 MG/0.4 ML SQ ONE (07:55)
[2024-10-22] MEDS ORDERED: carvediloL 6.25 MG TAB ONE (07:55)
[2024-10-22] MEDS ORDERED: SPIRONOLACTONE 25 MG TABLET ONE (07:58)
[2024-10-22] MEDS: ASPIRIN 81 MG CHEWABLE TABLET PO SCH (08:45)
[2024-10-22] MEDS: ENOXAPARIN 40 MG/0.4 ML SQ SCH (08:45)
[2024-10-22] MEDS: carvediloL 6.25 MG TAB PO SCH (08:45)
[2024-10-22] MEDS: SPIRONOLACTONE 25 MG TABLET PO SCH (08:45)
[2024-10-22] MEDS: FUROSEMIDE 40 MG/4 ML VIAL IV SCH (08:45)
[2024-10-22] MEDS: lisinopriL 5 MG TAB PO SCH (08:45)
[2024-10-22 09:28] VITALS: BMI 21.6
[2024-10-22 12:48] LABS: Magnesium 1.9 mg/dL (1.6-2.4); Phosphorus 3.1 mg/dL (2.5-4.9)
[2024-10-22 14:01] LABS: Specific Gravity 1.007 (1.005-1.030); Urine Bilirubin NEGATIVE (Negative); Urine Blood Negative (Negative); Urine Clarity Clear (Clear); Urine Color Colorless (Yellow); Urine Glucose NEGATIVE (Negative); Urine Ketones NEGATIVE (Negative); Urine Microscopic Reflex YN NO UMIC; Urine Nitrite NEGATIVE (Negative); Urine Protein NEGATIVE (Negative); Urine Urobilinogen Normal (Normal); Urine pH 6.5 (5.0-7.0)
[2024-10-22] MEDS: ATORVASTATIN 40 MG TAB PO SCH (20:14)
--- NOTE | 2024-10-23 03:38 | P.PN ---
Date of Service: 10/22/24 patient seen this afternoon reports breathing much improved reports has weak heart - ~15-20% EF has been in multiple hospitals over last 1-2 years reports several stress tests and cardiac cath's in last few years -- states last cardiac cath was no significant disease and did not need a stent difficulties following up, and has not been on lasix in many months trop 280s continue aspirin, statin, beta yarelis, lovenox nstemi, likely demand ischemia cardiology consulted on admission
--- NOTE | 2024-10-23 06:39 | P.PN ---
Nursing had reported patient had 20 beat run of V. tach heart rate was 160 then back to sinus rhythm patient denies any chest pain currently heart rate was 66 blood pressure stable. EKG ordered. Labs pending this morning. Noted to have elevated troponin cardiology was consulted previously
[2024-10-23 07:07] LABS: Absolute Eosinophils 0.1 K/uL (0-0.5); Absolute Lymphocytes (CBC) 1.6 K/uL (0.7-4.9); Absolute Neutrophil 3.5 K/uL (1.8-8.0); Basophils % 0.7 % (0-1.3); Eosinophils % 2.1 % (0-4.4); Hematocrit 41.3 % (39.6-49.0); Hemoglobin 13.3 g/dL (13.6-17.9); Lymphocytes % 25.4 % (15.3-44.8); MCH 26.5 pg (27.0-35.0); MCHC 32.1 g/dL (32.0-36.0); MCV 82.5 fL (80-100); MPV 9.7 fL (7.6-11.3); Monocytes % 15.7 % (3.3-12.3); Neutrophils % 56.1 % (41.7-73.7); Nucleated Red Blood Cells % 0.1 % (0-0); Platelets 182 thou/uL (152-406); RBC Red Blood Cell Count 5.01 M/uL (4.33-5.43); Red Cell Distribution Width 16.6 % (12.1-15.2)
[2024-10-23 08:53] LABS: Albumin 2.8 g/dL (3.4-5.0); Albumin/Globulin Ratio 0.6 (1.1-1.8); Anion Gap 10.3 mEq/L (5.0-15.0); Bilirubin Total 0.7 mg/dL (0.2-1.0); Globulin 4.8 g/dL (2.3-3.5); Magnesium 1.9 mg/dL (1.6-2.4); Potassium 3.3 mEq/L (3.5-5.1); Protein, Total 7.6 g/dL (6.4-8.2)
[2024-10-23 08:54] LABS: Troponin High Sensitivity 303.6 pg/mL (<58.9)
[2024-10-23 09:11] LABS: Blood Morphology Comment NOT SEEN (NOT SEEN); Platelet Estimate ADEQ; White Blood Cell Scan OK (OK)
--- NOTE | 2024-10-23 11:49 | P.CNS ---
Date of Consult: 10/23/24 Chief Complaint: SOB History of Present Illness: Patient with PMH of combined systolic and diastolic heart failure, non ischemic, presented with worsening SOB, lower extremities swelling, denies any other cardiac symptoms. has been out of medications. Allergies No Known Allergies Allergy (Unverified 09/16/23 13:37) Home medications list reviewed: Yes Home Medications: Aspirin Chewable [Aspirin Chewable*] 81 mg PO DAILY #30 tab.chew 09/20/23 Atorvastatin Calcium [Lipitor] 40 mg PO BEDTIME 30 Days #30 tab 10/07/23 Furosemide [Lasix*] 40 mg PO DAILY 30 Days #30 tab 10/07/23 Lisinopril [Zestril] 2.5 mg PO DAILY 30 Days #30 10/07/23 Spironolactone 25 mg PO DAILY 30 Days #30 10/07/23 carvediloL [Carvedilol] 6.25 mg PO BID 30 Days #30 10/07/23 - Past Medical/Surgical History Diabetic: No -: CHF -: [place] -: hypertension -: hyperlipidemia - Family History Father History Unknown: Yes Mother History Unknown: Yes - Social History Smoking Status: Current every day smoker Alcohol use: No CD- Drugs: No Caffeine use: Yes Place of Residence: Home Review of Systems 10-point ROS is otherwise unremarkable Physical Examination Temp Pulse Resp BP Pulse Ox 98.1 F 55 12 98/64 100 10/23/24 08:00 10/23/24 08:00 10/23/24 08:00 10/23/24 08:00 10/23/24 08:00 General: Alert, In no apparent distress HEENT: Atraumatic, PERRLA, Mucous membr. moist/pink, EOMI, Sclerae nonicteric Neck: Supple, 2+ carotid pulse no bruit, No LAD, Without JVD or thyroid abnormality Respiratory: Clear to auscultation bilaterally, Normal air movement Cardiovascular: Regular rate/rhythm, Normal S1 S2 Gastrointestinal: Normal bowel sounds, No tenderness Musculoskeletal: No tenderness Integumentary: No rashes Neurological: Normal gait, Normal speech, Normal tone, Normal affect Lymphatics: No axilla or inguinal lymphadenopathy - Problems (1) Acute on chronic combined systolic (congestive) and diastolic (congestive) heart failure Current Visit: Yes Status: Acute Plan: stop coreg start Toprol XL 25 mg daily continue lisinopril 2.5 aldactone 25 mg daily switch lasix to 40 mg po daily (2) Troponin level elevated Current Visit: Yes Status: Acute Plan: patient mention that he had a heart cath recently and told his coronaries are clean and he only got a weak muscle. no further cardiac work up needed. (3) NSVT (nonsustained ventricular tachycardia) Current Visit: Yes Status: Acute Plan: change coreg to toprol XL monitor and correct electrolytes closely.
--- NOTE | 2024-10-23 17:52 | P.PN ---
Subjective Date of Service: 10/23/24 Chief Complaint: SOB Patient denies any complaint today. Patient's telemetry rate 20 beats of V. tach with heart rate up to 160. Patient was asymptomatic. Patient reports prior history of abnormal heart rhythm. He denied shortness of breath or orthopnea today. Physical Examination - Vital Signs Temperature: 98.6 F Blood Pressure: 107/73 Pulse: 68 Respirations: 15 Pulse Ox (%): 100 Assessment And Plan - Plan Physical examination General: Alert and oriented x3, NAD, HEENT: Conjunctiva not pale, anicteric sclera Neck: Supple, no elevated JVD Heart: Heart sounds 1 and 2 normal, regular rhythm, normal rate, no pedal edema, pansystolic murmur. Lungs: Clear to auscultation bilaterally, adequate breath sounds bilaterally, no rhonchi or crackles. Abdomen: Soft, nondistended, nontender, normal bowel sounds. Extremities: No tenderness, no deformity Skin: Normal skin turgor, no rash, no nodules or ulcers. Neuro: No focal motor deficit. Normal speech. Psychiatry: Normal mood, no agitation. Diagnosis Acute on chronic systolic heart failure V. tach NSTEMI Tobacco use Acute on chronic systolic heart failure Severe LV dysfunction, EF 15 to 20%. Patient appears euvolemic. Cardiology input appreciated. Change IV Lasix to oral Lasix. Continue Coreg, low-dose lisinopril and Aldactone. Monitor intake and output. NSTEMI Likely secondary to demand ischemia. Cardiology input appreciated. No prior history of coronary artery disease. No further cardiac workup per cardiology. V. tach Cardiology input appreciated. Continue telemetry Optimize potassium and magnesium levels. Beta-yarelis per cardiology. Patient is a candidate for AICD pending his Medicaid application. Tobacco use Smoking cessation advised. DVT prophylaxis: Lovenox Advanced directive: full code Discharge Plan: Home
[2024-10-23 18:49] LABS: Magnesium 1.8 mg/dL (1.6-2.4); Phosphorus 3.7 mg/dL (2.5-4.9)
[2024-10-23] MEDS: POTASSIUM CL SA 10 MEQ TAB PO ONE ×2 (20:23→21:35)
[2024-10-23] MEDS: MAGNESIUM OXIDE 400 MG TAB ONE (20:23)
[2024-10-23] MEDS: MAGNESIUM OXIDE 400 MG TAB PO ONE (21:35)
[2024-10-24 06:31] LABS: Absolute Eosinophils 0.1 K/uL (0-0.5); Absolute Lymphocytes (CBC) 2.1 K/uL (0.7-4.9); Absolute Neutrophil 2.9 K/uL (1.8-8.0); Basophils % 0.8 % (0-1.3); Eosinophils % 2.1 % (0-4.4); Hematocrit 44.5 % (39.6-49.0); Hemoglobin 14.2 g/dL (13.6-17.9); Lymphocytes % 33.8 % (15.3-44.8); MCH 26.4 pg (27.0-35.0); MCV 82.6 fL (80-100); MPV 9.7 fL (7.6-11.3); Neutrophils % 47.3 % (41.7-73.7); Nucleated Red Blood Cells % 0.2 % (0-0); Platelets 201 thou/uL (152-406); RBC Red Blood Cell Count 5.38 M/uL (4.33-5.43); Red Cell Distribution Width 16.3 % (12.1-15.2)
[2024-10-24 06:43] LABS: Anion Gap 7.9 mEq/L (5.0-15.0); Potassium 3.9 mEq/L (3.5-5.1)
[2024-10-24] MEDS: POTASSIUM CL SA 10 MEQ TAB PO ONE (09:50)
[2024-10-24 09:59] VITALS: O2SAT 100
--- NOTE | 2024-10-24 12:14 | P.DS ---
Admission Date: 10/22/24 Discharge Date: 10/24/24 Disposition: ROUTINE DISCHARGE Discharge Condition: FAIR Reason for Admission: SOB Brief History of Present Illness: 64 yrs old Male with past medical history of hypertension, hyperlipidemia, CHF, CAD with history of CT was brought to ER due to shortness of breath. Patient reported progressive shortness of breath of 1-1/2 weeks. Symptoms associated with orthopnea. Patient was assessed in the ER, chest x-ray showed cardiomegaly. Troponin and BNP elevated. Patient was admitted for for further management of CHF exacerbation. Hospital Course: Patient admitted to the medical floor and the following medical problems addressed: Diagnosis Acute on chronic systolic heart failure V. tach NSTEMI Tobacco use Acute on chronic systolic heart failure Severe LV dysfunction, EF 15 to 20%. Patient appears euvolemic. Cardiology evaluated patient and assisted with management Patient treated with IV Lasix and transition to oral Lasix Continued Coreg, low-dose lisinopril and Aldactone. Patient informed he will need LifeVest and AICD placement. NSTEMI Likely secondary to demand ischemia. Cardiology input appreciated. No prior history of coronary artery disease. No further cardiac workup per cardiology. V. tach Cardiology input appreciated. Continue telemetry Optimize potassium and magnesium levels. Beta-yarelis per cardiology. Patient informed he would need a LifeVest and subsequently AICD placement because of his risk of sudden cardiac . He stated he is waiting on his Medicaid application to go through before the LifeVest. Patient advised to follow-up with Dr. Lyle/Jaime office for further evaluation for LifeVest/AICD Tobacco use Smoking cessation advised. Vital Signs/Physical Exam: Temp Pulse Resp BP Pulse Ox 98.6 F 66 16 107/73 100 10/24/24 08:00 10/24/24 10:01 10/24/24 08:00 10/24/24 10:01 10/24/24 08:00 General: Alert, In no apparent distress, Oriented x3 HEENT: Mucous membr. moist/pink Neck: JVD not distended Respiratory: Clear to auscultation bilaterally, Normal air movement Cardiovascular: Regular rate/rhythm, Normal S1 S2 Gastrointestinal: Normal bowel sounds, Soft and benign, Non-distended Musculoskeletal: No swelling, No tenderness Integumentary: No rashes, No cyanosis Neurological: Normal strength at 5/5 x4 extr, Cranial nerves 3-12 intact Laboratory Data at Discharge: WBC 6.20 thou/uL (4.3-10.9) 10/24/24 06:06 Hgb 14.2 g/dL (13.6-17.9) 10/24/24 06:06 Hct 44.5 % (39.6-49.0) 10/24/24 06:06 Plt Count 201 thou/uL (152-406) 10/24/24 06:06 PT 16.7 SECONDS (9.4-12.5) H 10/22/24 00:00 INR 1.51 10/22/24 00:00 APTT 31.3 SECONDS (24.3-36.9) 10/22/24 00:00 Sodium 136 mEq/L (136-145) 10/24/24 06:06 Potassium 3.9 mEq/L (3.5-5.1) D 10/24/24 06:06 BUN 24 mg/dL (7-18) H 10/24/24 06:06 Creatinine 1.01 mg/dL (0.70-1.30) 10/24/24 06:06 Glucose 88 mg/dL (74-106) 10/24/24 06:06 Phosphorus 3.7 mg/dL (2.5-4.9) 10/23/24 18:26 Magnesium 2.0 mg/dL (1.6-2.4) 10/24/24 06:06 Total Bilirubin 0.7 mg/dL (0.2-1.0) 10/23/24 06:00 AST 59 U/L (15-37) H 10/23/24 06:00 ALT 51 U/L (16-61) 10/23/24 06:00 Alkaline Phosphatase 87 U/L (45-117) 10/23/24 06:00 Home Medications: Aspirin Chewable [Aspirin Chewable*] 81 mg PO DAILY #30 tab.chew 10/24/24 Atorvastatin Calcium [Lipitor] 40 mg PO BEDTIME 30 Days #30 tab 10/24/24 Furosemide [Lasix*] 40 mg PO DAILY 30 Days #30 tab 10/24/24 Lisinopril [Zestril] 2.5 mg PO DAILY #30 tab 10/24/24 Spironolactone [Aldactone] 25 mg PO DAILY #30 tab 10/24/24 carvediloL [Coreg] 6.25 mg PO BID #60 tab 10/24/24 New Medications: Spironolactone [Aldactone] 25 mg PO DAILY #30 tab Aspirin Chewable [Aspirin Chewable*] 81 mg PO DAILY #30 tab.chew carvediloL [Coreg] 6.25 mg PO BID #60 tab Furosemide [Lasix*] 40 mg PO DAILY 30 Days #30 tab Atorvastatin Calcium [Lipitor] 40 mg PO BEDTIME 30 Days #30 tab Lisinopril [Zestril] 2.5 mg PO DAILY #30 tab Diet: AHA Activity: Ad beatriz Followup: NONE,NONE [Primary Care Provider] - Time spent managing pt's care (in minutes): 34
[2024-10-24 16:01] VITALS: BP 92/59; TEMP 98.8
--- NOTE | 2024-10-26 16:04 | EKG ---
Test Date: 2024-10-21 Test Time: 23:48:00 Botanical Technical Officer: IAN MEASUREMENT RESULTS: Intervals: Rate: 83 AK: 208 QRSD: 148 QT: 456 QTc: 535 [place]: P: 82 AK: 208 QRS: -79 T: 89 INTERPRETIVE STATEMENTS: Normal sinus rhythm Left axis deviation Left bundle branch block Abnormal ECG Compared to ECG 10/05/2023 08:38:08 Left-axis deviation now present Left bundle-branch block now present Atrial premature complex(es) no longer present Ventricular premature complex(es) no longer present Left ventricular hypertrophy no longer present Early repolarization no longer present Prolonged QT interval no longer present Electronically Signed On 10-26-24 15:54:59 BRAKE LINING FINISHER by Rik Lyle
--- NOTE | 2024-11-02 11:21 | ECHO ---
HEIGHT: 5 ft 11 in WEIGHT: 155 lb 0 oz DATE OF STUDY: 10/23/[address]: Eloy Siu DO 2-DIMENSIONAL: YES M.MODE: YES DOPPLER: YES COLOR FLOW: YES TDS: NO PORTABLE: YES DEFINITY: NO BUBBLE STUDY: NO DIAGNOSIS: CONGESTIVE HEART FAILURE CARDIAC HISTORY: CATHERIZATION: NO SURGERY: NO PROSTHETIC VALVE: NO PACEMAKER: NO MEASUREMENTS (cm) DIASTOLIC (NORMALS) SYSTOLIC (NORMALS) IVSd 1.2 (0.6-1.2) LA Diam 2.8 (1.9-4.0) LVEF 5-10% LVIDd 7.1 (3.5-5.7) LVIDs 6.6 (2.0-3.5) %FS 7% LVPWd 1.2 (0.6-1.2) Ao Diam 2.8 (2.0-3.7) 2 DIMENSIONAL ASSESSMENT: RIGHT ATRIUM: SEVERELY ENLARGED LEFT ATRIUM: DILATED RIGHT VENTRICLE: NORMAL LEFT VENTRICLE: SEVERELY DILATED TRICUSPID VALVE: NORMAL MITRAL VALVE: MODERATE MITRAL REGURGITATION PULMONIC VALVE: NORMAL AORTIC VALVE: NORMAL PERICARDIAL EFFUSION: NONE AORTIC ROOT: NORMAL LEFT VENTRICULAR WALL MOTION: SEVERE GLOBAL HYPOKINESIS. DOPPLER/COLOR FLOW: GRADE II DIASTOLIC DYSFUNCTION. COMMENTS: 1. SEVERELY REDUCED LEFT VENTRICULAR SYSTOLIC FUNCTION. LEFT VENTRICULAR EJECTION FRACTION 5-10%. SEVERE GLOBAL HYPOKINESIS. 2. GRADE II DIASTOLIC DYSFUNCTION. 3. MODERATE MITRAL REGURGITATION. 4. NORMAL FILLING PRESSURES. TECHNOLOGIST: MICKEY JOYCE
== END 2024-10-24 17:26 | disposition home or self-care (01) | DRG 280 ==
LOC: ER 22:48 → ERHOLD 10-22 05:28 → 4TH 10-22 14:21
PROVIDERS: ADMIT Family Medicine; ATTEND Internal Medicine
DX: I11.0 Hypertensive heart disease with heart failure (principal); I50.43 Acute on chronic combined systolic (congestive) and diastolic (congestive) heart failure; I21.A1 Myocardial infarction type 2; I47.20 Ventricular tachycardia, unspecified; E78.5 Hyperlipidemia, unspecified; I25.10 Atherosclerotic heart disease of native coronary artery without angina pectoris; F17.210 Nicotine dependence, cigarettes, uncomplicated; I25.2 Old myocardial infarction; Z23 Encounter for immunization; Z79.82 Long term (current) use of aspirin; Z79.02 Long term (current) use of antithrombotics/antiplatelets; Z79.899 Other long term (current) drug therapy
CPT/HCPCS: 36415; 71045; 80048; 80053; 81003; 83735; 83880; 84100; 84484; 85025; 85610; 85730; 93005; 93306; 94760; 96374; 99285; J1650; J1940

== ENCOUNTER 2024-11-07 17:15 | Emergency (ER) | payer SELFPAY ==
--- OUTSIDE RECORDS SUMMARY | 2024-11-07 17:17 | XMS REPORT | Continuity of Care Document ---
Author Name Unknown Address [address] [place] [address] [facility]connect Address [address] [place] [address] Care Team Providers Care Senior Caregiver Name Role Phone PANCHO Menjivar [facility], [facility] Care Physician Unavailable Dianne Christina RN Attending Clinician [phone] AKBAR ROSAS Attending Clinician Unavailable AKBAR ROSAS Admitting Clinician Unavailable Payers Payer Name Policy Type Policy Number Effective Date Expirati on Date Source Problems Condition Name Condition Details Condition Category Status Onset Date Resolution Date Last Treatment Date Treating Clinician Comments Source Acute right-side d CHF (congestiv e heart failure) Acute right-side d CHF (congestiv e heart failure) Disease Active 517 00:00: 00 [facility] LBBB (left bundle branch block) LBBB (left bundle branch block) Disease Active 08-13 00:00: 00 [facility] Troponin I above reference range Troponin I above reference range Disease Active 08-13 00:00: 00 [facility] Essential hypertensi on Essential hypertensi on Disease Active 08-13 00:00: 00 [facility] 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 Disease Active 08-13 00:00: 00 [facility] New onset of congestive heart failure New onset of congestive heart failure Disease Active 08-12 00:00: 00 [facility] Allergies, Adverse Reactions, Alerts Allergy Name Allergy Type Status Severity Reaction(s) Onset Date Inactive Date Treating Clinician Comments Source NO KNOWN ALLERGIE S Drug Class Active [facility] Social History Social Habit Start Date Stop Date Quantity Comments Source History SDOH Alcohol Comment [place] [facility] Alcohol intake 2021-03-30 00:00:00 2021-03-30 00:00:00 Current drinker of alcohol (finding) [facility] History SDOH Alcohol Frequency 2020-08-14 00:00:00 2020-08-14 00:00:00 5 [facility] History SDOH Alcohol Std Drinks 2020-08-14 00:00:00 2020-08-14 00:00:00 3 [facility] History SDOH Alcohol Binge 2020-08-14 00:00:00 2020-08-14 00:00:00 99 [facility] Cigarettes smoked current (pack per day) - Reported 2020-08-12 00:00:00 2020-08-12 00:00:00 [facility] Cigarette pack-years 2020-08-12 00:00:00 2020-08-12 00:00:00 [facility] Tobacco use and exposure 2020-08-12 00:00:00 2020-08-12 00:00:00 Never used [facility] Sex Assigned At 1960 00:00:00 1960 00:00:00 [facility] Smoking Status Start Date Stop Date Source Current every day smoker 2020-08-12 00:00:00 [facility] Medications Ordered Medication Name Filled Medication Name Start Date Stop Date Current Medication? Ordering Clinician Indication Dosage Frequency Signature (SIG) Comments Components Source furosemide 40 mg tablet 03-31 00:00: 00 Yes [id number] 40mg Take 1 tablet by mouth daily. [facility] lisinopriL 2.5 mg tablet 03-31 00:00: 00 Yes [id number] 2.5mg Take 1 tablet by mouth daily. [facility] metoprolol tartrate 50 mg tablet 03-31 00:00: 00 Yes [id number] 50mg Take 1 tablet by mouth 2 (two) times daily. [facility] atorvastati n 40 mg tablet 03-31 00:00: 00 Yes [id number] 40mg Take 1 tablet by mouth at bedtime. [facility] aspirin 81 mg chewable tablet 03-31 00:00: 00 Yes [id number] 81mg Take 1 tablet by mouth daily. [facility] Encounters Start Date/Time End Date/Time Encounter Type Admission Type Attending [facility] Care Facility Care Department Encounter ID Source 2023-10-25 14:30:05 2023-10-25 14:30:05 Outpatient [facility] [id number] Pancho Torres 2023-01-05 15:13:30 2023-01-05 15:13:30 Outpatient [facility] [id number] Pancho Torres 2021-08-17 00:00:00 2021-08-17 00:00:00 Patient Outreach Dianne Christina [id number] [facility] 2021-03-30 11:44:00 2021-03-31 18:57:00 Outpatient X AKBAR ROSAS [facility] KRISTOPHER [id number] [facility] 2020-08-12 10:05:00 2020-08-12 10:05:00 Emergency X [facility] ERT [id number] [facility] Results Test Description Test Time Test Comments Results Result Co mments Source COMPREHENSIVE METABOLIC [id number] 03:57:49* Test Item Value Reference Range Interpretation Comme nts GLUCOSE (test code = 2217) 94 MG/DL 70-99 BUN (test code = 2208) 17 MG/DL 8-23 CREATININE (test code = 2214) 1.03 MG/DL 0.80-1.40 eGFR (2020 CKD-EPI) (test code = 19266) 83 ML/MIN/1.73 >60 CALC BUN/CREAT (test code = 2235) 17 RATIO 6-28 SODIUM (test code = 2231) 144 MEQ/L 133-146 POTASSIUM (test code = 2228) 3.9 MEQ/L 3.5-5.4 CHLORIDE (test code = 2215) 105 MEQ/L 95-107 CARBON DIOXIDE (test code = 2206) 26 MEQ/L 19-31 CALCIUM (test code = 220) 9.6 MG/DL 8.5-10.5 PROTEIN, TOTAL (test code = 2229) 8.7 G/DL 6.1-8.3 H ALBUMIN (test code = 2201) 4.4 G/DL 3.5-5.2 CALC GLOBULIN (test code = 2240) 4.3 G/DL 1.9-3.7 H CALC A/G RATIO (test code = 2234) 1.0 RATIO 1.0-2.6 BILIRUBIN, TOTAL (test code = 220) 0.5 MG/DL See_Comment [Automated me ssage] The system which generated this result transmitted reference range: <=1.2. The reference range was not used to interpret this result as normal/abnormal. ALKALINE PHOSPHATASE (test code = 4) 100 U/L 40-123 AST (test code = 2218) 85 U/L 9-50 H ALT (test code = 221) 54 U/L 5-50 H UNLESS OTHERWISE INDICATED, ALL TESTING PERFORMED [email or web address] [email or web address] [address] [place] [address] [employer]UIT [employer] VEGETABLE PARER: ZEKE STERN M.D. CLIA NUMBER [id number] [facility] [place]. [id number] LIPID [id number] 04:02:34* Test Item Value Reference Range Interpretation [...] = 2238) 2.00 RATIO <3.55 COMPREHENSIVE METABOLIC [id number] 04:02:34* Test Item Value Reference Range Interpretation Comme nts GLUCOSE (test code = 2217) 92 MG/DL 70-99 BUN (test code = 2207) 12 MG/DL 8-23 CREATININE (test code = 2213) 1.28 MG/DL 0.80-1.40 eGFR (2020 CKD-EPI) (test code = ) 64 ML/MIN/1.73 >60 CALC BUN/CREAT (test code = 223) 9 RATIO 6-28 SODIUM (test code = [...] G/DL 3.5-5.2 CALC GLOBULIN (test code = 0) 4.1 G/DL 1.9-3.7 H CALC A/G RATIO [...] 45 U/L 9-50 ALT (test code = 2219) 29 U/L 5-50 UNLESS OTHERWISE INDICATED, ALL TESTING PERFORMED [facility] [address] [place] [id number] [employer] PARER: ZEKE STERN M.D. CLIA NUMBER [id number] [facility] [place]. [id number]
[2024-11-07 17:36] LABS: Absolute Basophils 0.1 K/uL (0-0.5); Absolute Eosinophils 0.1 K/uL (0-0.5); Absolute Lymphocytes (CBC) 2.1 K/uL (0.7-4.9); Absolute Monocytes 0.6 K/uL (0.1-1.3); Absolute Neutrophil 3.1 K/uL (1.8-8.0); Basophils % 1.2 % (0-1.3); Eosinophils % 1.1 % (0-4.4); Hematocrit 39.3 % (39.6-49.0); Hemoglobin 12.5 g/dL (13.6-17.9); Lymphocytes % 34.9 % (15.3-44.8); MCH 26.2 pg (27.0-35.0); MCHC 31.9 g/dL (32.0-36.0); MCV 82.1 fL (80-100); MPV 9.8 fL (7.6-11.3); Monocytes % 10.5 % (3.3-12.3); Neutrophils % 52.3 % (41.7-73.7); Nucleated Red Blood Cells % 0.2 % (0-0); Platelets 135 thou/uL (152-406); RBC Red Blood Cell Count 4.79 M/uL (4.33-5.43); Red Cell Distribution Width 16.6 % (12.1-15.2)
[2024-11-07 18:01] LABS: Anion Gap 9.8 mEq/L (5.0-15.0); Potassium 3.8 mEq/L (3.5-5.1)
[2024-11-07 18:02] LABS: Troponin High Sensitivity 87.1 pg/mL (<58.9)
[2024-11-07] MEDS ORDERED: ASPIRIN 81 MG CHEWABLE TABLET ONE (18:13)
[2024-11-07] MEDS ORDERED: FUROSEMIDE 40 MG/4 ML VIAL ONE (18:13)
--- NOTE | 2024-11-07 18:24 | RAD REPORT ---
EXAMINATION: ONE VIEW CHEST XR CLINICAL INDICATION: Male, 64 years old.,DYSPNEA TECHNIQUE: Frontal chest projection is submitted. Examination is limited by patient positioning and t echnique. COMPARISON: 10/21/2024 FINDINGS: The lungs are well inflated and clear. No pneumothorax or sizable effusion. Stable cardiomegaly.. Me diastinal contours are unremarkable. IMPRESSION: Stable cardiomegaly. No other acute intrathoracic abnormalities.
--- NOTE | 2024-11-07 19:32 | EDPHYS ---
Physician Documentation [facility] Name: Milan Machuca Age: 64 yrs Sex: Male : 1960 Arrival Date: 11/07/2024 Time: 17:15 Bed 7 Private MD: ED Physician Arturo Quintero HPI: 11/07 17:24 This 64 yrs old Black Male presents to ER via Unassigned with complaints of Shortness ec2 Of Breath. 17:24 Patient arrives today for orthopnea. Reports history of CHF. Is on Lasix. Reports ec2 shortness of breath with activity as well as laying flat. Reports no fevers or chills. Reports frequent cough.. Historical: - Allergies: 17:56 No Known Allergies; ko1 - PMHx: 17:56 CHF; Hypertensive disorder; Myocardial infarction; ko1 - Immunization history:: Adult Immunizations unknown. - Infectious Disease History:: Denies. - Social history:: Smoking status: unknown. ROS: 17:24 Constitutional: as per hpi ec2 Exam: 17:24 Constitutional: GEN: NAD Head: atraumatic Eyes: EOMI Ears: External ears are ec2 normal. CV: regular rate LUNGS: Rales noted in the right lower lung rincon. ABD: non-distended SKIN: no evidence of rashes MSK: no evidence of trauma Vital Signs: 17:20 BP 113 / 86; Pulse 79; Resp 18; Pulse Ox 100% on R/A; ko1 17:26 BP 128 / 87; Pulse 96; Pulse Ox 95% ; ec2 18:23 BP 110 / 85; Pulse 86; Resp 16; Pulse Ox 96% on R/A; ko1 19:30 BP 115 / 80; Pulse 78; Resp 17; Temp 98.1; Pulse Ox 100% ; Pain 0/10; jj7 19:30 Pain Scale: Adult jj7 MDM: 17:18 Medical Screening Exam initiated ec2 17:24 Data reviewed: vital signs, nurses notes. ED course: Patient arrives today for ec2 orthopnea. Examination yields right lower lung Rales as noted above. Will obtain lab work, EKG, chest x-ray. Suspect volume overload.. 17:31 ED course: EKG independently reviewed and interpreted by me, shows normal sinus rhythm, ec2 rate 95, no ischemic changes noted, left bundle branch block noted.. 18:30 ED course: Chest x-ray with cardiomegaly.. ec2 19:31 ED course: Patient with lab work that shows elevated BNP as well as elevated troponin. ec2 When compared to external lab work, troponin is down comparatively. I gave the patient Lasix and patient with urine output, discussed possible inpatient hospitalization versus outpatient management for volume overload secondary to CHF exacerbation patient elected to go home. Will discharge home. Return precautions given. Instructed to continue taking diuretic.. 11/07 17:18 Order name: Basic Metabolic Panel; Complete Time: 18:06 ec2 11/07 17:18 Order name: CBC with Diff; Complete Time: 19:36 ec2 11/07 17:18 Order name: NT PRO-BNP; Complete Time: 18:06 ec2 11/07 17:18 Order name: Troponin HS; Complete Time: 18:06 ec2 11/07 19:35 Order name: CBC Smear Scan; Complete Time: 19:36 EDMS 11/07 17:18 Order name: XRAY Chest (1 view); Complete Time: 18:30 ec2 11/07 17:18 Order name: EKG; Complete Time: 17:19 ec2 11/07 17:18 Order name: Cardiac monitoring; Complete Time: 17:22 ec2 11/07 17:18 Order name: EKG - Nurse/Tech; Complete Time: 17:31 ec2 11/07 17:18 Order name: IV Saline Lock; Complete Time: 17:31 ec2 11/07 17:18 Order name: Labs collected and sent; Complete Time: 17:32 ec2 11/07 17:18 Order name: O2 Per Protocol; Complete Time: 17:22 ec2 11/07 17:18 Order name: O2 Sat Monitoring; Complete Time: 17:22 ec2 Administered Medications: 18:18 Drug: Aspirin PO Chewable Tablet 324 mg PO once; 81 mg tablets x 4 Route: PO; jb4 19:44 Follow up: Response: No adverse reaction jj7 18:18 Drug: Furosemide IVP 40 mg IVP once; give over 2 minutes Route: IVP; Site: left forearm;jb4 19:44 Follow up: Response: Marked relief of symptoms jj7 Disposition Summary: 11/07/24 19:32 Discharge Ordered Notes: Location: Home ec2 Condition: Stable ec2 Diagnosis - Heart failure, unspecified ec2 Followup: ec2 - With: Private Physician - When: - Reason: Re-evaluation by your physician Discharge Instructions: - Discharge Summary Sheet ec2 - Heart Failure, Diagnosis, [id number] ec2 Forms: - Medication Reconciliation Form ec2 - Antibiotic Education ec2 - Prescription Opioid Use ec2 - Patient Portal Instructions ec2 - Leadership Thank You Letter ec2 Signatures: Dispatcher [employer] Chad Howard RN RN jb4 Juliet Gómez RN RN ko1 Arturo Quintero MD MD ec2 Wilver Esparza RN jj7
--- NOTE | 2024-11-07 19:32 | ER ---
Nurse's Notes [facility] Name: Milan Machuca Age: 64 yrs Sex: Male : 1960 Arrival Date: 11/07/2024 Time: 17:15 Bed 7 Private MD: Diagnosis: Heart failure, unspecified Presentation: 11/07 17:20 Chief complaint: EMS states: short of breath since Tuesday and its not getting any ko1 better. Coronavirus screen: At this time, the client does not indicate any symptoms associated with coronavirus-19. Ebola Screen: No symptoms or risks identified at this time. Initial Sepsis Screen: Does the patient meet any 2 criteria? No. Patient's initial sepsis screen is negative. Does the patient have a suspected source of infection? No. Patient's initial sepsis screen is negative. Risk Assessment: Do you want to hurt yourself or someone else? Patient reports no desire to harm self or others. Onset of symptoms is unknown. 17:20 Method Of Arrival: EMS: [facility] ko1 17:20 Acuity: AVELINO 3 ko1 Triage Assessment: 17:56 General: Appears in no apparent distress. Behavior is calm, cooperative, appropriate ko1 for age. Pain: Denies pain. EENT: No deficits noted. No signs and/or symptoms were reported regarding the EENT system. Neuro: No deficits noted. Cardiovascular: No deficits noted. Respiratory: Reports shortness of breath on exertion Onset: The symptoms/episode began/occurred tuesday. Respiratory: the patient has mild shortness of breath. GI: No deficits noted. No signs and/or symptoms were reported involving the gastrointestinal system. : No deficits noted. No signs and/or symptoms were reported regarding the genitourinary system. Derm: No deficits noted. No signs and/or symptoms reported regarding the dermatologic system. Musculoskeletal: No deficits noted. No signs and/or symptoms reported regarding the musculoskeletal system. Historical: - Allergies: 17:56 No Known Allergies; ko1 - PMHx: 17:56 CHF; Hypertensive disorder; Myocardial infarction; ko1 - Immunization history:: Adult Immunizations unknown. - Infectious Disease History:: Denies. - Social history:: Smoking status: unknown. Screenin:20 [facility] ED Fall Risk Assessment (Adult) History of falling in the last 3 months, ko1 including since admission No falls in past 3 months (0 pts) Confusion or Disorientation No (0 pts) Intoxicated or Sedated No (0 pts) Impaired Gait No (0 pts) Mobility Assist Device Used No (0 pt) Altered Elimination No (0 pt) Score/Fall Risk Level 0 - 2 = Low Risk Oriented to surroundings, Maintained a safe environment, Educated pt \T\ family on fall prevention, incl call for assistance when getting out of bed, Assessed \T\ reinforced patient's understanding of fall precautions, Hourly rounding (assess needs \T\ fall precautionary measures) done. Abuse screen: Denies threats or abuse. Denies injuries from another. Nutritional screening: No deficits noted. Tuberculosis screening: No symptoms or risk factors identified. Assessment: 17:58 Reassessment: see triage note. Cardiovascular: Rhythm is regular. Respiratory: Airway ko1 is patent Respiratory effort is even, unlabored, Breath sounds are diminished bilaterally. 19:30 Reassessment: ASSUMED CARE OF PT. PT SITTING IN BED. NO SOB NOTED. VS STABLE. CALL BLANCO jj7 IN REACH Patient states feeling better. Respiratory: Airway is patent Respiratory effort is even, unlabored, Respiratory pattern is regular, symmetrical. Vital Signs: 17:20 BP 113 / 86; Pulse 79; Resp 18; Pulse Ox 100% on R/A; ko1 17:26 BP 128 / 87; Pulse 96; Pulse Ox 95% ; ec2 18:23 BP 110 / 85; Pulse 86; Resp 16; Pulse Ox 96% on R/A; ko1 19:30 BP 115 / 80; Pulse 78; Resp 17; Temp 98.1; Pulse Ox 100% ; Pain 0/10; jj7 19:30 Pain Scale: Adult jj7 ED Course: 17:18 Patient arrived in ED. ec2 17:18 Arturo Quintero MD is Attending Physician. ec2 17:20 Juliet Gómez, NEHEMIAS is Primary Nurse. ko1 17:20 No provider procedures requiring assistance completed. Initial lab(s) drawn, by , luciano sent to lab. Inserted saline lock: 20 gauge in left antecubital area, using aseptic technique. Blood collected. Flushed with 10 mL NS. 17:20 Patient has correct armband on for positive identification. Bed in low position. Call ko1 light in reach. Side rails up X2. Provided Education on: labs. Client placed on continuous cardiac and pulse oximetry monitoring. NIBP monitoring applied. wax coating machine tender on. Door closed. Noise minimized. Lights dimmed. Warm blanket given. Pillow given. 17:32 Basic Metabolic Panel Sent. ko1 17:32 CBC with Diff Sent. ko1 17:32 NT PRO-BNP Sent. ko1 17:32 Troponin HS Sent. ko1 17:37 XRAY Chest (1 view) In Process Unspecified. EDMS 17:41 EKG done, by ED staff. tm3 17:56 Triage completed. ko1 17:56 Patient placed in an exam room, on a stretcher, on hammer setter, on pulse oximetry, ko1 Patient notified of wait time. 19:35 IV discontinued, intact, bleeding controlled, No redness/swelling at site. Pressure jj7 dressing applied. Administered Medications: 18:18 Drug: Aspirin PO Chewable Tablet 324 mg PO once; 81 mg tablets x 4 Route: PO; jb4 19:44 Follow up: Response: No adverse reaction jj7 18:18 Drug: Furosemide IVP 40 mg IVP once; give over 2 minutes Route: IVP; Site: left forearm;jb4 19:44 Follow up: Response: Marked relief of symptoms jj7 Medication: 17:20 VIS not applicable for this client. ko1 Outcome: 19:32 Discharge ordered by . ec2 19:35 Discharged to home ambulatory, jj7 19:35 Condition: improved 19:35 Discharge instructions given to patient, Instructed on discharge instructions, follow up and referral plans. Demonstrated understanding of instructions, follow-up care, 19:44 Patient left the ED. jj7 Signatures: Dispatcher [employer] EDMO Bal Fongi tm3 Chad Patterson, RN RN jb4 Juliet Gómez RN RN ko1 Wilver Esparza RN RN jj7 Arturo Quintero MD MD ec2
[2024-11-07 19:35] LABS: Blood Morphology Comment NOT SEEN (NOT SEEN); Platelet Estimate DECR; White Blood Cell Scan OK (OK)
[2024-11-07 20:00] VITALS: BP 115/80; TEMP 98.1; O2SAT 100
--- NOTE | 2024-11-09 13:50 | EKG ---
Test Date: 2024-10-23 Test Time: 07:19:24 Structures Technician: HB MEASUREMENT RESULTS: Intervals: Rate: 60 WV: 214 QRSD: 154 QT: 514 QTc: 514 Natalia: P: 77 WV: 214 QRS: -78 T: 96 INTERPRETIVE STATEMENTS: Sinus rhythm with 1st degree AV block with premature atrial complexes Possible Left atrial enlargement Left axis deviation Nonspecific intraventricular block Abnormal ECG Compared to ECG 10/21/2024 23:48:00 Atrial premature complex(es) now present First degree AV block now present Left bundle-branch block no longer present Electronically Signed On 11-09-24 13:39:36 TECHNICAL TRAINING MANAGER by Erik Sandoval
--- NOTE | 2024-11-12 11:23 | EKG ---
Test Date: 2024-11-07 Test Time: 17:27:10 Utility Helicopter Repairer: TM MEASUREMENT RESULTS: Intervals: Rate: 95 ND: 182 QRSD: 164 QT: 444 QTc: 557 Dousman: P: 83 ND: 182 QRS: -76 T: 90 INTERPRETIVE STATEMENTS: Sinus rhythm Left axis deviation Left bundle branch block Abnormal ECG Compared to ECG 10/23/2024 07:19:24 Left bundle-branch block now present Atrial premature complex(es) no longer present First degree AV block no longer present Electronically Signed On 11-12-24 11:16:09 WEALTH MANAGEMENT DIRECTOR by Rik Lyle
== END 2024-11-07 19:44 | disposition home or self-care (01) ==
LOC: ER 17:15
DX: I50.9 Heart failure, unspecified (principal); I10 Essential (primary) hypertension; I25.2 Old myocardial infarction; R05.9 Cough, unspecified
CPT/HCPCS: 36415; 71045; 80048; 83880; 84484; 85025; 93005; 96374; 99285; J1940